=== PATIENT | female | born 1995 | race Caucasian/White ===

== ENCOUNTER 2019-11-21 19:26 | Emergency (ER) | payer BC, SELFPAY ==
[2019-11-21 19:40] VITALS: BP 147/95; PULSE 96; RESP 18; TEMP 36.6; O2SAT 100
[2019-11-21 19:44] VITALS: RESP 20
--- NOTE | 2019-11-21 20:07 | ECG_ITS ---
Measurements Intervals [place] Rate: 89 P: 29 DC: 177 QRS: 4 QRSD: 93 T: 37 QT: 367 QTc: 448 Interpretive Statements SINUS RHYTHM NORMAL ECG Electronically Signed On 11-22-2019 7:03:30 CDT by Miko Mccormack D.O.
--- NOTE | 2019-11-21 20:08 | ED.OVERDOSE ---
HPI - Overdose General Chief Complaint: Overdose Stated Complaint: Took to many antidepressants Time Seen by Provider: 11/21/19 20:04 History of Present Illness HPI Narrative: Nausea and vomiting since this morning. She reports that she was drinking last night and had too much. At some point she believes that she took of her wellbutrin tablets. She does not believe that she was trying to hurt herself, although she offeres no other explanation. She denies SI or any current depressive symptoms. Her rolloff driver confirms that he has no suspicion that she would try to harm herself. Related Data Home Medications Medication Instructions Recorded Confirmed bupropion HCl [Wellbutrin XL] 150 mg PO QAM 11/21/19 Allergies Allergy/AdvReac Type Severity Reaction Status Date / Time No Known Allergies Allergy Verified 11/21/19 19:48 Review of Systems Review of Systems: All systems reviewed & are unremarkable except as noted in HPI and below Constitutional: Constitutional: Denies fever(s) Cardiovascular: Cardiovascular: Denies chest pain Respiratory: Respiratory: Denies dyspnea Gastrointestinal: Gastrointestinal: Reports abdominal pain, Reports nausea and Reports vomiting Genitourinary: Genitourinary: Denies hematuria and Denies dysuria Psychiatric: Psychiatric: Denies homicidal ideation and Denies suicidal ideation [facility] Social History Social History (Updated 11/22/19 @ 04:58 by Ernst Wagner MD) Alcohol intake: current Gender identity (if verbalized by the patient): Female Exam Const: General: healthy appearing, no acute distress and alert Orientation/consciousness: patient oriented x3 HENMT: Head: normal to inspection Neck: Neck: normal visual inspection and no lymphadenopathy Chest: Chest palpation & inspection: no tenderness Resp: Effort & Inspection: normal respiratory effort Auscultation: clear to auscultation bilaterally, no rales, no rhonchi and no wheezes Cardio: Jugular venous distension: no JVD Rate: regular rate Rhythm: regular rhythm Heart sounds: no murmurs GI: Inspection: non-distended GI Palp: Yes Soft to palpation and No Tenderness to palpation present (GI) Skin: General skin exam: normal color Neuro: General: patient oriented x3 and moves all extremities Speech: normal speech Extrem: General: no edema Psych: Appearance: well kempt Affect: normal affect Course Vital Signs Vital signs: Vital Signs Temperature 36.6 C 11/21/19 19:40 Pulse Rate 96 11/21/19 19:40 Respiratory Rate 18 11/21/19 19:40 Blood Pressure 147/95 H 11/21/19 19:40 Pulse Oximetry 100 11/21/19 19:40 Temperature 36.6 C 11/21/19 19:40 Pulse Rate 76 11/21/19 22:36 Respiratory Rate 18 11/21/19 22:36 Blood Pressure 122/68 11/21/19 22:36 Pulse Oximetry 100 11/21/19 22:36 MDM - Overdose MDM Narrative Medical decision making narrative: Her symptoms are most likely related to the alcohol and not the wellbutrin. I am concerned about her taking this, but I genuinely believe that she does not have any current suicidal intent and I do not believe that she would benefit from being held for crisis evaluation. Medical Records Attestation: I reviewed the patient's medical records. Lab Data Attestation: I reviewed the patient's lab results. Result diagrams: 11/21/19 21:03 11/21/19 21:03 Labs: Lab Results 11/21/19 11/21/19 11/21/19 Range/Units 21:02 21:03 21:03 WBC 10.9 H (4.5-10.0) K/mm3 RBC 4.47 (4.2-5.4) M/mm3 Hgb 14.4 (12.0-15.0) g/dL Hct 42.2 (37.0-47.0) % MCV 94.4 (80-100) fl MCH 32.2 (26-34) pg MCHC 34.1 (32-36) g/dl RDW 12.0 (11.5-14.5) % Plt Count 277 (150-375) k/mm3 MPV 10.2 (7.4-10.4) fl Immature Gran % (Auto) 0.5 (0-0.5) % Neut % (Auto) 70.6 (45.5-73.1) % Lymph % (Auto) 20.1 (18.3-44.2) % Davison % (Auto) 7.1 (2.6-8.5) % Eos % (Auto) 1.3 (0-4.4) % Baso
[2019-11-21] MEDS: SODIUM CHLORIDE 0.9% IV 1,000 ML 999 ML IV CONT (21:01)
[2019-11-21 21:02] VITALS: BP 132/82; PULSE 87; RESP 20
[2019-11-21] MEDS: ONDANSETRON INJ 4 MG/2 ML VIAL IV PUSH (21:02)
[2019-11-21 21:12] LABS: Basophils Percent Auto 0.4 % (0.2-1.2); Eosinophils Absolute Auto 0.1 K/mm3 (0-0.3); Eosinophils Percent Auto 1.3 % (0-4.4); Hematocrit 42.2 % (37.0-47.0); Hemoglobin 14.4 g/dL (12.0-15.0); Immature Granulocyte Absolute 0.05 K/mm3 (0.00-0.031); Immature Granulocyte Percent A 0.5 % (0-0.5); Lymphocytes Absolute Auto 2.19 K/mm3 (0.9-3.2); Lymphocytes Percent Auto 20.1 % (18.3-44.2); Mean Corpuscular HGB Conc 34.1 g/dl (32-36); Mean Corpuscular Hemoglobin 32.2 pg (26-34); Mean Corpuscular Volume 94.4 fl (80-100); Mean Platelet Volume 10.2 fl (7.4-10.4); Monocytes Absolute Auto 0.8 K/mm3 (0.1-0.6); Monocytes Percent Auto 7.1 % (2.6-8.5); Neutrophils Absolute Auto 7.7 K/mm3 (1.3-6.7); Neutrophils Percent Auto 70.6 % (45.5-73.1); Platelet Count Result 277 k/mm3 (150-375); Red Blood Count 4.47 M/mm3 (4.2-5.4); White Blood Count 10.9 K/mm3 (4.5-10.0)
--- NOTE | 2019-11-21 21:15 | PC.NURSE ---
spoke with Dave at poison control center. she advised labs which are already in progress and ekg which has been completed. will continue to monitor
[2019-11-21 21:17] LABS: Add Urine Microscopic? YES; Amorphous Sediment Urine Moderate; Appearance Urine Cloudy (Clear); Bacteria Urine Trace /hpf; Bilirubin Urine Negative (Negative); Blood Urine Negative (Negative); Color Urine Yellow (Yellow); Glucose Urine UA Negative (Negative); Ketones Urine Negative (Negative); Leukocyte Esterase Ur Negative LEU/UL (Negative); Nitrate Urine Negative (Negative); Protein Urine 1+ mg/dL (Negative); RBC Urine 0-2 /hpf (0-2); Specific Grav Ur 1.019 (1.001-1.035); Squamous Epithelial Cell Urine Many /hpf (Few); Urobilinogen Urine Negative mg/dL (<2.0)
[2019-11-21 21:22] LABS: Alanine Aminotransferase 35 U/L (4-35); Albumin Level 4.7 g/dL (3.5-5.1); Alkaline Phosphatase 76 U/L (38-126); Aspartate Amino Transferase 28 U/L (14-36); Bilirubin,Total 0.3 mg/dL (0.2-1.3); Blood Urea Nitrogen 9 mg/dL (7-17); Calcium 9.3 mg/dL (8.4-10.2); Carbon Dioxide 24 mmol/L (22-30); Chloride 106 mmol/L (98-107); Estimated CRCL calculation 106 ml/min; Estimated Glomerular Filt Rate > 60; Glucose 95 mg/dL (65-105); Potassium 4.1 mmol/L (3.4-5.0); Sodium 139 mmol/L (137-145)
[2019-11-21 21:23] LABS: Acetaminophen < 10 ug/mL (10-30); Ethanol < 10 mg/dL (<10); Salicylate < 1.0 mg/dL (2-20)
[2019-11-21 21:27] LABS: Benzodiazepines Screen Urine Negative (Negative)
[2019-11-21 21:28] LABS: Barbiturate Screen Urine Negative (Negative)
[2019-11-21 21:30] LABS: Amphetamine Screen Urine Negative (Negative); Cannabinoid Screen Urine Positive (Negative); Cocaine Screen Urine Negative (Negative); Methadone Screen Urine Negative (Negative); Opiate Screen Urine Negative (Negative); Phencyclidine Screen Urine Negative (Negative)
--- NOTE | 2019-11-21 22:03 | PC.NURSE ---
spoke with meli at poison control to update on patients status. patient continues to be stable and poison control has closed their case
[2019-11-21 22:08] VITALS: BP 119/78; PULSE 83; RESP 18; O2SAT 100
[2019-11-21] MEDS: METOCLOPRAMIDE HCL INJ 10 MG/2 ML VIAL IV PUSH (22:08)
[2019-11-21 22:36] VITALS: BP 122/68; PULSE 76; RESP 18; O2SAT 100
== END 2019-11-21 22:53 | disposition home or self-care (01) ==
PROVIDERS: Emergency Provider Emergency Medicine
DX: R11.2 Nausea with vomiting, unspecified (principal)
CPT/HCPCS: 36415; 80053; 80307; 81001; 81025; 84443; 85025; 93005; 96361; 96374; 96375; 99284; J2405; J2765; J7030

== ENCOUNTER 2022-09-01 16:27 | Outpatient (CLI) | payer BC, SELFPAY ==
[2022-09-01] VITALS (7 sets, daily range): BP systolic 122–133; BP diastolic 50–72; PULSE 80–92; BMI 35.9
--- NOTE | 2022-09-01 17:04 | OBADM ---
This patient, James Theodore, admitted to the OB room OB Post 116 for observation. Patient/family oriented to hospital policies and general routines including ID bracelet, bed and alarms, visiting hours, pain management, procedures, bathroom and other care routines, personal items, smoking policy, room service/diet, and visiting hours. Patient/Family are encouraged to report perceived risks to care and to ask questions if they do not understand what they are told or what they should do.
[2022-09-01 17:14] LABS: Basophils Percent Auto 0.3 % (0.2-1.2); Eosinophils Absolute Auto 0.1 K/mm3 (0-0.3); Eosinophils Percent Auto 1.2 % (0-4.4); Hematocrit 37.3 % (37.0-47.0); Hemoglobin 12.7 g/dL (12.0-15.0); Immature Granulocyte Percent A 0.9 % (0-0.5); Lymphocytes Absolute Auto 2.33 K/mm3 (0.9-3.2); Lymphocytes Percent Auto 21.1 % (18.3-44.2); Mean Corpuscular Hemoglobin 31.4 pg (26-34); Mean Corpuscular Volume 92.3 fl (80-100); Monocytes Absolute Auto 0.7 K/mm3 (0.1-0.6); Monocytes Percent Auto 5.9 % (2.6-8.5); Neutrophils Absolute Auto 7.8 K/mm3 (1.3-6.7); Neutrophils Percent Auto 70.6 % (45.5-73.1); Platelet Count Result 175 k/mm3 (150-375); Red Blood Count 4.04 M/mm3 (4.2-5.4); Red Cell Distribution Width 12.3 % (11.5-14.5)
[2022-09-01 17:22] LABS: Appearance Urine Cloudy (Clear); Bacteria Urine 1+ /hpf; Bilirubin Urine Negative (Negative); Blood Urine Negative (Negative); Color Urine Yellow (Yellow); Glucose Urine UA Negative (Negative); Ketones Urine Negative (Negative); Leukocyte Esterase Ur Negative LEU/UL (NEGATIVE); Nitrate Urine Negative (Negative); Non Pathogenic Casts 0-2; Protein Urine Negative (Negative); RBC Urine 0-2 /hpf (0-2); Specific Grav Ur 1.015 (1.001-1.035); Squamous Epithelial Cell Urine Many /hpf (Few); Urobilinogen Urine 0.2 mg/dL (<2.0); pH Urine 6.5 (5.0-9.0)
[2022-09-01 17:28] LABS: Alanine Aminotransferase 23 U/L (6-35); Albumin Level 3.9 g/dL (3.5-5.1); Alkaline Phosphatase 74 U/L (38-126); Anion Gap 9 mmol/L (8-16); Aspartate Amino Transferase 24 U/L (14-36); Bilirubin,Total 0.4 mg/dL (0.2-1.3); Blood Urea Nitrogen 5 mg/dL (7-17); Calcium 8.7 mg/dL (8.4-10.2); Carbon Dioxide 22 mmol/L (22-30); Chloride 104 mmol/L (98-107); Estimated CRCL calculation 166 ml/min; Estimated Glomerular Filt Rate > 60; Glucose 83 mg/dL (65-110); Potassium 4.1 mmol/L (3.4-5.0); Sodium 135 mmol/L (137-145); Uric Acid 3.6 mg/dL (2.5-7.5)
[2022-09-01 17:29] LABS: Add Urine Microscopic? YES
--- NOTE | 2022-09-01 18:25 | PC.NURSE ---
Called lab about patients pending urine results. No results at this time, machine down.
--- NOTE | 2022-09-01 18:40 | PC.NURSE ---
Spoke with pt about pending test results. Pt has no complaints at this time and no needs.
[2022-09-01 19:01] LABS: Creatinine Urine 86.4 mg/dL; Total Protein Urine Random 9 mg/dL
--- NOTE | 2022-09-01 19:04 | PC.NURSE ---
Called lab for update. Machine was down. Updated patient on wait.
--- NOTE | 2022-09-01 19:15 | PC.NURSE ---
Updated Dr. Sanchez on no s/s, lab work, BPs. Orders to d/c patient and follow up in 2 weeks.
--- NOTE | 2022-09-01 19:30 | PC.NURSE ---
Discharge instructions reviewed with pt. Pt instructed to follow up with Dr. Sanchez in 2 weeks, pt reports her appointment is already made. PreEclampsia hand out given to patient and reviewed as well as other s/s to return to hospital. Pt had no questions.
== END 2022-09-01 19:30 ==
LOC: ANHOBOP 16:32 → ANHOBPP 16:35
PROVIDERS: PCP Family Medicine; Visit Provider Obstetrics & Gynecology
DX: O13.9 Gestational [pregnancy-induced] hypertension without significant proteinuria, unspecified trimester (principal); Z3A.00 Weeks of gestation of pregnancy not specified
CPT/HCPCS: 36415; 80053; 81001; 82570; 84156; 84550; 85025; 87086; 99199

== ENCOUNTER 2022-09-26 08:00 | Outpatient (RCR) | payer BC, SELFPAY ==
[2022-09-26 10:02] LABS: Glucose 1 Hour PP 50gm Dose 153 mg/dL
[2022-09-26 11:07] LABS: Vitamin D 25 Hydroxy 27.1 ng/mL
[2022-09-26 11:39] LABS: Hepatitis C Virus Antibody Negative (Negative)
[2022-09-29 11:30] LABS: Rapid Plasma Reagin Non-Reactive (NonReactive)
== END 2022-12-25 23:59 | disposition home or self-care (01) ==
LOC: ANHLAB 08:00
PROVIDERS: PCP Family Medicine; Visit Provider Obstetrics & Gynecology
DX: O36.0190 Maternal care for anti-D [Rh] antibodies, unspecified trimester, not applicable or unspecified (principal); Z3A.00 Weeks of gestation of pregnancy not specified
CPT/HCPCS: 36415; 82306; 82947; 84443; 86592; 86803; 86900; 86901

== ENCOUNTER 2022-10-02 07:01 | Outpatient (CLI) | payer BC, SELFPAY ==
[2022-10-02 07:32] LABS: Glucose Fasting Gestational 112 mg/dL (>/=95)
[2022-10-02 09:27] LABS: Glucose 1 Hour Gest 210 mg/dL (>/=180)
[2022-10-02 10:15] LABS: Glucose 2 Hour Gest 156 mg/dL (>/= 155)
[2022-10-02 10:58] LABS: Glucose 3 Hour Gest 119 mg/dL (>/=140)
== END 2022-10-02 07:02 | disposition home or self-care (01) ==
LOC: ANHLAB 07:03
PROVIDERS: PCP Family Medicine; Visit Provider Obstetrics & Gynecology
DX: R73.09 Other abnormal glucose (principal)
CPT/HCPCS: 36415; 82951; 82952

== ENCOUNTER 2022-11-10 08:40 | Outpatient (CLI) | payer OTHER, SELFPAY ==
[2022-11-10 09:05] LABS: Basophils Percent Auto 0.2 % (0.2-1.2); Eosinophils Absolute Auto 0.1 K/mm3 (0-0.3); Hemoglobin 11.6 g/dL (12.0-15.0); Immature Granulocyte Absolute 0.06 K/mm3 (0.00-0.031); Immature Granulocyte Percent A 0.7 % (0-0.5); Lymphocytes Absolute Auto 1.59 K/mm3 (0.9-3.2); Lymphocytes Percent Auto 19.2 % (18.3-44.2); Mean Corpuscular HGB Conc 32.2 g/dl (32-36); Mean Corpuscular Hemoglobin 29.6 pg (26-34); Mean Corpuscular Volume 91.8 fl (80-100); Mean Platelet Volume 10.8 fl (7.4-10.4); Monocytes Absolute Auto 0.5 K/mm3 (0.1-0.6); Monocytes Percent Auto 6.4 % (2.6-8.5); Neutrophils Percent Auto 72.5 % (45.5-73.1); Platelet Count Result 175 k/mm3 (150-375); Red Blood Count 3.92 M/mm3 (4.2-5.4); Red Cell Distribution Width 12.9 % (11.5-14.5); White Blood Count 8.3 K/mm3 (4.5-10.0)
[2022-11-10 09:54] LABS: HIV 1/2 Ab P24 Ag Result Negative (Negative)
[2022-11-11 12:11] LABS: Rapid Plasma Reagin Non-Reactive (NonReactive)
== END 2022-11-10 08:41 | disposition home or self-care (01) ==
LOC: ANHLAB 08:41
PROVIDERS: PCP Family Medicine; Visit Provider Obstetrics & Gynecology
DX: Z34.90 Encounter for supervision of normal pregnancy, unspecified, unspecified trimester (principal); Z3A.00 Weeks of gestation of pregnancy not specified
CPT/HCPCS: 36415; 85025; 86592; 86703; G0432

== ENCOUNTER 2022-11-21 09:19 | Observation (INO) | payer OTHER, SELFPAY ==
[2022-11-21 13:23] VITALS: BMI 41.4
--- NOTE | 2022-12-18 13:31 | PM.OBTRLD ---
OB - Triage/Final Diagnosis Visit Information Comments/Additional reasons for admission: I have assessed the risk for this patient, James Theodore, and determined that she would benefit from observation care. Final Diagnosis (1) Variable deceleration: Status: Acute
== END 2022-11-21 13:45 | disposition home or self-care (01) ==
PROVIDERS: Admitting Provider Obstetrics & Gynecology; PCP Family Medicine; Visit Provider Obstetrics & Gynecology
DX: O36.8330 Maternal care for abnormalities of the fetal heart rate or rhythm, third trimester, not applicable or unspecified (principal); Z3A.36 36 weeks gestation of pregnancy
CPT/HCPCS: 76819; G0378; G0379

== ENCOUNTER 2022-11-27 07:27 | Outpatient (RCR) | payer OTHER, SELFPAY ==
--- NOTE | 2022-11-14 10:32 | PC.NURSE ---
1030: Dr. Sanchez phoned by RN. RN reported to MD that pt was sent over from [facility] for decelerations after accelerations in the office. Reactive NST reported as well as possible variables,uterine irritability, and maternal vital signs. Orders for 2 hour extended monitor, BPP, and ASHLEY.
[2022-11-14 13:06] VITALS: BP 105/67; PULSE 96
--- NOTE | 2022-11-14 13:10 | PC.NURSE ---
1251: Dr. Sanchez phoned in for update. RN informed OB of pt's BPP of 6/8, reactive tracing, and possible decelerations after accelerations. Orders to call OB back with ASHLEY results. 1256: RN phone Dr. Sanchez with results of ASHLEY of 9.8. OB stated she reviewed tracing in her office. Orders to make sure pt has a NST scheduled with [facility] on Thursday (11/17/2021) , if not, orders to schedule patient for a NST and BPP on Thursday here. 1300: Patient stated she has a NST scheduled on Thursday with [facility] and then she is scheduled for an appointment with Dr. Sanchez after her NST at [facility] on Thursday (11/17/22).
[2022-11-24 09:54] VITALS: BP 95/44; PULSE 95
--- NOTE | ~2022-11-27 | US_ITS ---
EXAMINATION: US OB BPP wo non-stress DATE: 11/27/2022 08:31 INDICATION: Gestational diabetes, third trimester TECHNIQUE: Real-time pelvic ultrasound was performed. The interpreting radiologist was not present fo r the study. COMPARISON: 11/24/2022 FINDINGS: There is a single living fetus in vertex presentation. The placenta is anterior. heart rate is 151 beats per minute (bpm). Biophysical profile performed by the technologist: breathing (30 sec sustained breathing in 30 minutes): 2 out of 2 movement (3 gross body movements in 30 minutes): 2 out of 2 tone (one episode of tzsogvm-avjijjwzi-nxfpbre limb movement): 2 out of 2 Amniotic fluid pocket (2 cm): 2 out of 2 Total score: 8 out of 8 IMPRESSION: 1. Single living fetus in vertex presentation. 2. Biophysical profile 8 out of 8. Reviewed, dictated and finalized at location L.
--- NOTE | ~2022-11-27 | US_ITS ---
EXAMINATION: US OB BPP wo non-stress DATE: 11/14/2022 11:30 CDT INDICATION: Decelerations. Amniotic fluid index. TECHNIQUE: Real-time transabdominal obstetric ultrasound. FINDINGS: No prior studies for comparison. There is a single living fetus in vertex presentation. The placenta is anterior without placenta pre via. ASHLEY is normal measuring 9.8 cm (normal range for gestational age is 7.9-24.9 cm). cardiac activity and movement is noted with a heart rate of 149 beats per minute. Biophysical profile: breathin of 2 movement: 2 of 2 tone: 2 of 2 Amniotic flud pocket: 2 of 2 Total score: 6 of 8 IMPRESSION: 1. Single living intrauterine in vertex presentation. 2: Total biophysical profile score of 6/8. Reviewed, dictated and finalized at location B.
--- NOTE | ~2022-11-27 | US_ITS ---
EXAMINATION: US OB limited w BPP DATE: 11/24/2022 11:40 INDICATION: Gestational diabetes. Third trimester. TECHNIQUE: Real-time pelvic ultrasound was performed. COMPARISON: Ultrasound 11/21/2022 FINDINGS: There is a single living fetus in vertex presentation. The placenta is anterior. heart rate is 148 beats per minute (bpm). The amniotic fluid index is 15.9 cm, which is normal. Biophysical profile performed by the technologist: breathing (30 sec sustained breathing in 30 minutes): 2 out of 2 movement (3 gross body movements in 30 minutes): 2 out of 2 tone (one episode of wbkpzdr-ofqupgmay-goapujm limb movement): 2 out of 2 Amniotic fluid pocket (2 cm): 2 out of 2 Total score: 8 out of 8 IMPRESSION: 1. Single living fetus in vertex presentation. 2. Biophysical profile 8 out of 8. Reviewed, dictated and finalized at location A.
--- NOTE | ~2022-11-27 | US_ITS ---
EXAMINATION: US OB BPP wo non-stress DATE: 11/21/2022 10:52 CDT INDICATION: Gestational diabetes TECHNIQUE: Real-time transabdominal obstetric ultrasound. FINDINGS: Comparison to 11/14/2022 There is a single living fetus in vertex presentation. The placenta is anterior without placenta pre via. cardiac activity and movement is noted with a heart rate of 147 beats per minute. A mniotic fluid is subjectively normal. Biophysical profile: breathin of 2 movement: 2 of 2 tone: 2 of 2 Amniotic flud pocket: 2 of 2 Total score: 8 of 8 IMPRESSION: 1. Single living intrauterine in vertex presentation. 2: Total biophysical profile score of 8/8. Reviewed, dictated and finalized at location B.
[2022-11-27 07:39] VITALS: BP 118/72; PULSE 88
[2022-11-27 08:33] VITALS: BP 118/72; PULSE 88
--- NOTE | 2022-12-18 13:33 | PM.OBTRLD ---
OB - Triage/Final Diagnosis Visit Information Comments/Additional reasons for admission: I have assessed the risk for this patient, James Theodore, and determined that she would benefit from observation care. Final Diagnosis (1) Variable deceleration: Status: Acute (2) Gestational diabetes: Code(s): O24.419 - Gestational diabetes mellitus in , unspecified control Status: Acute
== END 2023-02-09 13:05 | disposition home or self-care (01) ==
LOC: ANHOBOP 07:27
PROVIDERS: PCP Family Medicine; Visit Provider Obstetrics & Gynecology
DX: O24.419 Gestational diabetes mellitus in pregnancy, unspecified control (principal); Z3A.37 37 weeks gestation of pregnancy
CPT/HCPCS: 59025; 76815; 76819; J2270

== ENCOUNTER 2022-12-07 16:31 | Inpatient (IN) | payer OTHER, SELFPAY ==
[2022-12-07] VITALS (11 sets, daily range): BP systolic 102–134; BP diastolic 43–77; PULSE 91–103; TEMP 36.6; BMI 41.4
[2022-12-07 17:59] LABS: Glucose Point of Care 89 mg/dl (65-105)
[2022-12-07 18:04] LABS: Basophils Percent Auto 0.1 % (0.2-1.2); Eosinophils Absolute Auto 0.1 K/mm3 (0-0.3); Eosinophils Percent Auto 0.6 % (0-4.4); Hematocrit 34.9 % (37.0-47.0); Hemoglobin 11.7 g/dL (12.0-15.0); Immature Granulocyte Absolute 0.02 K/mm3 (0.00-0.031); Immature Granulocyte Percent A 0.3 % (0-0.5); Lymphocytes Percent Auto 23.9 % (18.3-44.2); Mean Corpuscular HGB Conc 33.5 g/dl (32-36); Mean Corpuscular Hemoglobin 29.3 pg (26-34); Mean Corpuscular Volume 87.3 fl (80-100); Mean Platelet Volume 10.4 fl (7.4-10.4); Monocytes Absolute Auto 0.7 K/mm3 (0.1-0.6); Monocytes Percent Auto 8.9 % (2.6-8.5); Neutrophils Absolute Auto 5.3 K/mm3 (1.3-6.7); Neutrophils Percent Auto 66.2 % (45.5-73.1); Platelet Count Result 184 k/mm3 (150-375); Red Cell Distribution Width 12.9 % (11.5-14.5)
[2022-12-07] MEDS: DINOPROSTONE 10 MG VAG INSERT VAGINAL (18:05)
--- NOTE | 2022-12-07 19:06 | LDADM ---
This patient, James Theodore, was admitted to Labor/Delivery/Recovery 108 on 12/07/22 at 16:31. Plans for labor, pain management and were discussed with patient. Patient/family oriented to hospital policies and general routines including ID bracelet, bed and alarms, visiting hours, pain management, procedures, bathroom and other care routines, personal items, smoking policy, room service/diet and guest tray routines, infant security routines, and visiting hours. Patient/Family are encouraged to report perceived risks to care and to ask questions if they do not understand what they are told or what they should do. See OBIX for further documentation.
--- NOTE | 2022-12-07 19:59 | WPDANESEPP ---
Anes - Eval Pre Procedure Procedure: Labor epidural Date/Time: 12/07/22 19:59 Surgeon: Daniel Preop Diagnosis: Abdominal pain with contractions Pre Op Diagnosis: IOL Patient Data Age: 27 Gender: F Height: Weight: Last Vital Signs Temp 97.9 F 12/07/22 18:00 Pulse 95 12/07/22 19:45 BP 109/50 L 12/07/22 19:45 O2 Del Method Room Air 12/07/22 19:02 Allergies Allergy/AdvReac Type Severity Reaction Status Date / Time No Known Allergies Allergy Verified 12/01/22 15:51 Home Medications Medication Instructions Recorded Confirmed Type prenat.vits,jacqueline,ifz-ojbn-kmoyj 1 tablet PO DAILY 09/01/22 12/07/22 History blood sugar diagnostic (OneTouch #100 ea 10/06/22 11/27/22 Rx Verio test strips) blood-glucose meter (OneTouch #1 ea 10/06/22 11/27/22 Rx Verio Flex Meter) lancets 33 gauge (Lite Touch #100 ea 10/06/22 11/27/22 Rx Lancets) aspirin 81 mg tablet 81 mg PO DAILY 11/15/22 11/27/22 History cholecalciferol (vitamin D3) 50 50 mcg PO DAILY 11/15/22 11/27/22 History mcg (2,000 unit) capsule (Vitamin D3) insulin NPH isoph U-100 human 100 14 unit subcut QAM 11/15/22 11/27/22 History unit/mL (3 mL) subcutaneous pen (Humulin N NPH U-100 Insulin KwikPen) insulin NPH isoph U-100 human 100 70 unit subcut QHS 11/15/22 11/27/22 History unit/mL (3 mL) subcutaneous pen (Humulin N NPH U-100 Insulin KwikPen) insulin lispro 100 unit/mL 10 unit subcut QACDINNER 11/15/22 11/27/22 History subcutaneous pen insulin lispro 100 unit/mL 4 unit subcut QACBREAK 11/27/22 12/07/22 History subcutaneous pen Laboratory Tests 12/07/22 12/07/22 17:51 17:53 WBC 8.0 K/mm3 (4.5-10.0) RBC 4.00 L M/mm3 (4.2-5.4) Hgb 11.7 L g/dL (12.0-15.0) Hct 34.9 L % (37.0-47.0) MCV 87.3 fl (80-100) MCH 29.3 pg (26-34) MCHC 33.5 g/dl (32-36) RDW 12.9 % (11.5-14.5) Plt Count 184 k/mm3 (150-375) MPV 10.4 fl (7.4-10.4) Immature Gran % (Auto) 0.3 % (0-0.5) Neut % (Auto) 66.2 % (45.5-73.1) Lymph % (Auto) 23.9 % (18.3-44.2) [place] % (Auto) 8.9 H % (2.6-8.5) Eos % (Auto) 0.6 % (0-4.4) Baso % (Auto) 0.1 L % (0.2-1.2) Lymph # (Auto) 1.90 K/mm3 (0.9-3.2) Izard # (Auto) 0.7 H K/mm3 (0.1-0.6) Eos # (Auto) 0.1 K/mm3 (0-0.3) Baso # (Auto) 0.0 K/mm3 (0.0-0.1) Abs Immat Gran (auto) 0.02 K/mm3 (0.00-0.031) Absolute Neuts (auto) 5.3 K/mm3 (1.3-6.7) Absolute Nucleated RBC 0.0 K/mm3 (0.0-0.012) Nucleated RBC % 0.0 % (0.0-0.2) POC Capillary Glucose 89 mg/dl (65-105) RPR Pending : gestational age HCG: positive Patient hx anesthesia problems: none Family hx anesthesia problems: none Results Review: All pre-operative results and documents have been reviewed as part of the pre-operative evaluation. [facility] Past Medical History Medical History Gestational diabetes History of pineal cyst Morbid obesity PCOS (polycystic ovarian syndrome) and not yet delivered Family History Family History Father Alcoholism Depression Grandparent Diabetes mellitus Uterine cancer Social History Social History Smoking status: Never smoker Alcohol intake: current Substance use: never Lack of Transportation: No Lack of Food: Never True Current Housing: I Have Housing Concerned About Future Housing: No Difficulty Paying Gas/Electric Bills: No Difficulty Paying for Meds: No Currently Unemployed: No Education: Bachelor's Degree Difficulty w/ Childcare or Family Care: No Gender identity (if verbalized by the patient): Female Spiritual care concerns: No Exam Day of Procedure 12/07
[2022-12-07 21:18] LABS: Glucose Point of Care 132 mg/dl (65-105)
[2022-12-08] VITALS (280 sets, daily range): BP systolic 58–138; BP diastolic 27–100; PULSE 60–167; RESP 18–20; TEMP 36.3–37.2; O2SAT 94–100
[2022-12-08 01:07] LABS: Glucose Point of Care 147 mg/dl (65-105)
[2022-12-08] MEDS: LACTATED RINGERS 1,000 ML 125 ML IV CONT ×2 (01:49→07:20)
[2022-12-08 05:18] LABS: Glucose Point of Care 139 mg/dl (65-105)
[2022-12-08] MEDS: OXYTOCIN 30 UNITS/NS 500 ML 30 UNITS/500 ML BAG IV CONT (07:30)
[2022-12-08 07:34] LABS: Glucose Point of Care 109 mg/dl (65-105)
[2022-12-08 09:37] LABS: Glucose Point of Care 93 mg/dl (65-105)
[2022-12-08 11:35] LABS: Glucose Point of Care 88 mg/dl (65-105)
[2022-12-08] MEDS: DEXTROSE 5%/LACTATED RINGERS 1,000 ML 125 ML IV CONT ×2 (13:05→21:29)
[2022-12-08 14:07] LABS: Glucose Point of Care 100 mg/dl (65-105)
[2022-12-08] MEDS: SODIUM CHLORIDE 0.9% IV 300 ML 600 ML I-UTERINE (14:35)
--- NOTE | 2022-12-08 15:36 | PM.IMHP ---
H&P: HPI History of Present Illness Date/Time: 12/08/22 15:36 Chief Complaint: Medical induction of labor Narrative: She is a 27-year-old at 39 weeks by an EDC of 12/14/2022. course significant for insulin-requiring gestational diabetes. She has been recommended for induction at 39 weeks. She has had serial ultrasounds EFW approximately 88th percentile. Normal surveillance testing. She has been counseled regarding risk of gestational diabetes and delivery. As reviewed. GBS negative. Review of Systems Review of Systems: All systems reviewed & are unremarkable except as noted in HPI and below Constitutional: Constitutional: Reports no additional constitutional complaints and Denies headache(s) Eyes: Eyes: Denies spots in vision ENT: Reports system reviewed and no additional complaints, except as documented and Denies headache(s) Cardiovascular: Cardiovascular: Denies chest pain and Denies dyspnea Respiratory: Respiratory: Denies dyspnea Gastrointestinal: Gastrointestinal: Reports no additional gastrointestinal complaints Genitourinary: Genitourinary: Reports amenorrhea Musculoskeletal: Musculoskeletal: Reports no additional musculoskeletal complaints Integumentary/Breasts: Skin/Breast: Denies breast mass and Denies rash Neurologic: Denies headache(s) Psychiatric: Psychiatric: Reports no additional psychiatric complaints PMFSH Past Medical History Medical History Gestational diabetes History of pineal cyst Morbid obesity PCOS (polycystic ovarian syndrome) and not yet delivered Family History Family History Father Alcoholism Depression Grandparent Diabetes mellitus Uterine cancer Social History Social History Smoking status: Never smoker Alcohol intake: current Substance use: never Lack of Transportation: No Lack of Food: Never True Current Housing: I Have Housing Concerned About Future Housing: No Difficulty Paying Gas/Electric Bills: No Difficulty Paying for Meds: No Currently Unemployed: No Education: Bachelor's Degree Difficulty w/ Childcare or Family Care: No Gender identity (if verbalized by the patient): Female Spiritual care concerns: No Meds Home Medications and Allergies Home Medications Medication Instructions Recorded Confirmed Type prenat.vits,jacqueline,qtc-rxfo-cjzch 1 tablet PO DAILY 09/01/22 12/07/22 History blood sugar diagnostic (OneTouch #100 ea 10/06/22 11/27/22 Rx Verio test strips) blood-glucose meter (OneTouch #1 ea 10/06/22 11/27/22 Rx Verio Flex Meter) lancets 33 gauge (Lite Touch #100 ea 10/06/22 11/27/22 Rx Lancets) aspirin 81 mg tablet 81 mg PO DAILY 11/15/22 11/27/22 History cholecalciferol (vitamin D3) 50 50 mcg PO DAILY 11/15/22 11/27/22 History mcg (2,000 unit) capsule (Vitamin D3) insulin NPH isoph U-100 human 100 14 unit subcut QAM 11/15/22 11/27/22 History unit/mL (3 mL) subcutaneous pen (Humulin N NPH U-100 Insulin KwikPen) insulin NPH isoph U-100 human 100 70 unit subcut QHS 11/15/22 11/27/22 History unit/mL (3 mL) subcutaneous pen (Humulin N NPH U-100 Insulin KwikPen) insulin lispro 100 unit/mL 10 unit subcut QACDINNER 11/15/22 11/27/22 History subcutaneous pen insulin lispro 100 unit/mL 4 unit subcut QACBREAK 11/27/22 12/07/22 History subcutaneous pen Allergies Allergy/AdvReac Type Severity Reaction Status Date / Time No Known Allergies Allergy Verified 12/01/22 15:51 Vital Signs Vital Signs - 24 hr 12/07/22 17:31 12/07/22 18:15 12/07/22 18:30 Temperature Pulse Rate 103 H 96 93 Blood Pressure 102/56 L 102/58 L 120/75 Pulse Oximetry Oxygen Delivery 12/07/22 18:45 12/07/22 18:00 12/07/22 19:00 Temperature 97.9 F Pulse Rate 96 91 Blood Pressur
--- NOTE | 2022-12-08 15:45 | PM.OBPNVD ---
OB - PN: Subj Subjective Date/time seen: 12/08/22 15:45 Interval history: FHT 135 category 1 cervix 250- 3 AROM large amount of clear fluid. IUPC placed to monitor contraction pattern better. OB - PN: Obj Data Labs 12/07/22 17:53 Labs: Laboratory Results - last 24 hr 12/07/22 12/07/22 12/07/22 17:51 17:53 21:16 WBC 8.0 RBC 4.00 L Hgb 11.7 L Hct 34.9 L MCV 87.3 MCH 29.3 MCHC 33.5 RDW 12.9 Plt Count 184 MPV 10.4 Immature Gran % (Auto) 0.3 Neut % (Auto) 66.2 Lymph % (Auto) 23.9 [place] % (Auto) 8.9 H Eos % (Auto) 0.6 Baso % (Auto) 0.1 L Lymph # (Auto) 1.90 [place] # (Auto) 0.7 H Eos # (Auto) 0.1 Baso # (Auto) 0.0 Abs Immat Gran (auto) 0.02 Absolute Neuts (auto) 5.3 Absolute Nucleated RBC 0.0 Nucleated RBC % 0.0 POC Capillary Glucose 89 132 H Blood Type A Positive Antibody Screen Negative 12/08/22 12/08/22 12/08/22 01:03 05:13 07:29 WBC RBC Hgb Hct MCV MCH MCHC RDW Plt Count MPV Immature Gran % (Auto) Neut % (Auto) Lymph % (Auto) [place] % (Auto) Eos % (Auto) Baso % (Auto) Lymph # (Auto) [place] # (Auto) Eos # (Auto) Baso # (Auto) Abs Immat Gran (auto) Absolute Neuts (auto) Absolute Nucleated RBC Nucleated RBC % POC Capillary Glucose 147 H 139 H 109 H Blood Type Antibody Screen 12/08/22 12/08/22 12/08/22 09:33 11:32 14:05 WBC RBC Hgb Hct MCV MCH MCHC RDW Plt Count MPV Immature Gran % (Auto) Neut % (Auto) Lymph % (Auto) [place] % (Auto) Eos % (Auto) Baso % (Auto) Lymph # (Auto) [place] # (Auto) Eos # (Auto) Baso # (Auto) Abs Immat Gran (auto) Absolute Neuts (auto) Absolute Nucleated RBC Nucleated RBC % POC Capillary Glucose 93 88 100 Blood Type Antibody Screen OB - PN A/P Time Spent With Patient Time: Total time spent is greater than 50% in coordination of care (as documented) at patient's floor/unit and/or counseling patient:
--- NOTE | 2022-12-08 16:26 | P.PNOB_ITS ---
OB - PN: Subj Subjective Date/time seen: 12/08/22 16:26 Interval history: FHT 135 category 1, cervix 4/50/-3, mild caput, intermittent adequate contractions, variables improved with amnioinfusion bolus, OB - PN: Obj Data Labs 12/07/22 17:53 Labs: Laboratory Results - last 24 hr 12/07/22 12/07/22 12/07/22 17:51 17:53 21:16 WBC 8.0 RBC 4.00 L Hgb 11.7 L Hct 34.9 L MCV 87.3 MCH 29.3 MCHC 33.5 RDW 12.9 Plt Count 184 MPV 10.4 Immature Gran % (Auto) 0.3 Neut % (Auto) 66.2 Lymph % (Auto) 23.9 [place] % (Auto) 8.9 H Eos % (Auto) 0.6 Baso % (Auto) 0.1 L Lymph # (Auto) 1.90 [place] # (Auto) 0.7 H Eos # (Auto) 0.1 Baso # (Auto) 0.0 Abs Immat Gran (auto) 0.02 Absolute Neuts (auto) 5.3 Absolute Nucleated RBC 0.0 Nucleated RBC % 0.0 POC Capillary Glucose 89 132 H Blood Type A Positive Antibody Screen Negative 12/08/22 12/08/22 12/08/22 01:03 05:13 07:29 WBC RBC Hgb Hct MCV MCH MCHC RDW Plt Count MPV Immature Gran % (Auto) Neut % (Auto) Lymph % (Auto) [place] % (Auto) Eos % (Auto) Baso % (Auto) Lymph # (Auto) [place] # (Auto) Eos # (Auto) Baso # (Auto) Abs Immat Gran (auto) Absolute Neuts (auto) Absolute Nucleated RBC Nucleated RBC % POC Capillary Glucose 147 H 139 H 109 H Blood Type Antibody Screen 12/08/22 12/08/22 12/08/22 09:33 11:32 14:05 WBC RBC Hgb Hct MCV MCH MCHC RDW Plt Count MPV Immature Gran % (Auto) Neut % (Auto) Lymph % (Auto) [place] % (Auto) Eos % (Auto) Baso % (Auto) Lymph # (Auto) [place] # (Auto) Eos # (Auto) Baso # (Auto) Abs Immat Gran (auto) Absolute Neuts (auto) Absolute Nucleated RBC Nucleated RBC % POC Capillary Glucose 93 88 100 Blood Type Antibody Screen OB - PN A/P Time Spent With Patient Time: Total time spent is greater than 50% in coordination of care (as documented) at patient's floor/unit and/or counseling patient:
[2022-12-08 16:32] LABS: Glucose Point of Care 86 mg/dl (65-105)
[2022-12-08 16:55] LABS: Rapid Plasma Reagin Non-Reactive (NonReactive)
[2022-12-08] MEDS: CALCIUM CARBONATE (TUMS) 500 MG (200 MG ELEMENTAL) PO (17:25)
[2022-12-08 18:14] LABS: Glucose Point of Care 103 mg/dl (65-105)
[2022-12-08 20:02] LABS: Glucose Point of Care 78 mg/dl (65-105)
--- NOTE | 2022-12-08 21:52 | P.PNOB_ITS ---
OB - PN: Subj Subjective Date/time seen: 12/08/22 21:52 Interval history: FHT 135 category 1, cervix 4/70/-3. Cervix swelling, caput. She has been in latent labor since 299. Pitocin has had to be adjust and turned off. It was restarted. She continued to contract. Cervix at 2200 unchanged and now with cervical swelling, caput. She has been recommended for primary section for failure to progress. She has been informed of risk benefit of sect ion and risk of continuing labor. Questions answered. Consent signed. OB - PN: Obj Data Labs 12/07/22 17:53 Labs: Laboratory Results - last 24 hr 12/07/22 12/08/22 12/08/22 17:53 01:03 05:13 POC Capillary Glucose 147 H 139 H RPR Non-reactive 12/08/22 12/08/22 12/08/22 07:29 09:33 11:32 POC Capillary Glucose 109 H 93 88 RPR 12/08/22 12/08/22 12/08/22 14:05 16:11 18:12 POC Capillary Glucose 100 86 103 RPR 12/08/22 19:58 POC Capillary Glucose 78 RPR OB - PN A/P Time Spent With Patient Time: Total time spent is greater than 50% in coordination of care (as documented) at patient's floor/unit and/or counseling patient:
--- NOTE | 2022-12-08 22:01 | W.PM.PROC2 ---
Procedure Note - Detailed Date of Procedure 12/08/22 Pre-op Diagnosis Failure to progress Post-op Diagnosis Same Procedure Performed Primary low transverse section Surgeon Oc Sanchez MD Pathology Manager Jon. Anesthesia Epidural Indications Patient admitted for [facility] at 39 weeks with insulin requiring gestational diabetes. Last ultrasound showed weight 88%. She was admitted on 12/08. Cervidil started. She started ellis at 0300. Blood sugars have been WNL during labor. No insulin required. She had AROM at 0830. She had epidural placed prior to AROM. She has had pitocin adjusted and position changed. She did get amnioinfusion bolus for decelerations which did resolve the variable decelerations. Cervix has been unchanged since 2pm. Pitocin was discontinued and restarted and she continued to contract and no change. She was recommended for delivery for failure to progress, failed induction which she agreed. Findings Male , OT, 8lb 90z, 9,9 apgars, normal uterus and fallopian tubes, uterine hypotonia Description of Procedure After informed consent, risks and benefits of the procedure was discussed with the patient. The patient was taken to the operating room where she was placed in the dorsal lithotomy position with leftward tilt. After the prior placed epidural anesthesia was found to be adequate, she was then prepped and draped in the usual sterile fashion. A Pfannenstiel skin incision was made with a scalpel and carried through to the underlying layer of fascia. The fascia was then nicked in the midline, extending bilaterally. The fascia was dissected off the rectus muscles bluntly and sharply, superiorly and inferiorly. The rectus muscles were in the midline, and peritoneum was identified and entered bluntly. The pelvic organs were visualized. The bladder blade was then inserted. The vesicouterine peritoneum was identified and entered sharply with Metzenbaum scissors and extended bilaterally and then the bladder flap was created digitally. The low transverse uterine incision was then made with the scalpel and extended with bilateral index fingers in a crescent-shaped fashion. The head was delivered and the rest of the was delivered. The nose and mouth suctioned. The cord was clamped twice and cut. The was then handed off to the awaiting nursery staff. The placenta was then delivered manually. The uterine cavity was sponge curretted. The uterus was then exteriorized. The uterus was hypotonic. She had 40 units of Pitocin in the bag. 0.2mg IM Methergine was injected in uterine muscle. Eventually the uterine tone started to improve. The uterine incision was then closed with 0 vicryl in a running locked fashion.. Hemostasis noted. A second layer of 0 vicryl was used in an imbricating fashion for hemostasis. The tone of uterus improved but continued hypotonic and instructed 1000ug of Cytotec rectally. Uterine tone improved. The posterior cul de sac was irrigated. The uterus was then returned to the abdomen. Bilateral gutters were cleared off all clots and debris. The uterine incision was noted to be hemostatic. Interceed placed on uterine incision and vertically on front of uterus. The muscle bellies were inspected and noted to be hemostatic. The subfascial layer was noted to be hemostatic, and the fascia was closed with 0 Vicryl in a running fashion. The subcutaneous layer was then approximated with 3-0 Vicryl in a subcutaneous fashion. The skin was closed with dissolveable adelso. Skin dermabond applied at incision. All instruments, needle, and lap counts were correct x3. The patient was taken to the recovery room in stable condition. Estimated Blood Loss 1,050 Drains No Packing No Pathology Yes (placenta and cord) Complications Other complications (Hypotonic uterus) Condition Stable Disposition Floor [facility] Billing Surgery - Charge Forward: Surgery Billing
[2022-12-08 22:16] LABS: Glucose Point of Care 98 mg/dl (65-105)
[2022-12-08] MEDS: ceFAZolin 1 GM/NS 50 ML 1 GM/50 ML BAG IVPB (22:45)
[2022-12-08] MEDS: MORPHINE SULFATE INJ (*CRX) 10 MG/ML AMP 2 MG IV PUSH (23:49)
[2022-12-09] VITALS (38 sets, daily range): BP systolic 67–126; BP diastolic 33–76; PULSE 63–133; RESP 16–20; TEMP 36.1–36.9; O2SAT 75–100
[2022-12-09] MEDS: TRANEXAMIC ACID 1,000 MG/10 ML AMPUL 1000 MG IV PUSH (00:11)
[2022-12-09] MEDS: miSOPROStol 200 MCG TABLET 1000 MCG (01:23)
[2022-12-09] MEDS: KETOROLAC 30 MG/ML VIAL (*BKC) IV PUSH (05:20)
[2022-12-09] MEDS: HYDROcodone/acetaminophen (*CRX) 5-325 MG TABLET 1 TAB PO ×2 (05:20→16:40)
[2022-12-09 05:46] LABS: Basophils Percent Auto 0.1 % (0.2-1.2); Eosinophils Percent Auto 0.1 % (0-4.4); Hematocrit 28.7 % (37.0-47.0); Hemoglobin 9.2 g/dL (12.0-15.0); Immature Granulocyte Absolute 0.09 K/mm3 (0.00-0.031); Immature Granulocyte Percent A 0.7 % (0-0.5); Lymphocytes Absolute Auto 1.55 K/mm3 (0.9-3.2); Lymphocytes Percent Auto 11.5 % (18.3-44.2); Mean Corpuscular HGB Conc 32.1 g/dl (32-36); Mean Corpuscular Hemoglobin 29.1 pg (26-34); Mean Corpuscular Volume 90.8 fl (80-100); Mean Platelet Volume 11.2 fl (7.4-10.4); Neutrophils Absolute Auto 10.9 K/mm3 (1.3-6.7); Neutrophils Percent Auto 80.6 % (45.5-73.1); Platelet Count Result 171 k/mm3 (150-375); Red Blood Count 3.16 M/mm3 (4.2-5.4); White Blood Count 13.5 K/mm3 (4.5-10.0)
[2022-12-09] MEDS: DEXTROSE 5%/0.45% SOD CHL 1,000 ML 125 ML IV CONT (06:00)
[2022-12-09] MEDS: MULTIVIT/MIN/PREN/FOL AC/IRON TABLET 1 TAB PO (09:07)
[2022-12-09] MEDS: POLYSACCHARIDE IRON COMPLEX 150 MG CAPSULE PO ×2 (09:07→16:40)
[2022-12-09] MEDS: DOCUSATE SODIUM 100 MG CAPSULE PO ×2 (09:07→16:40)
[2022-12-09] MEDS: ceFAZolin 1 GM/NS 50 ML 1 GM/50 ML BAG IVPB (09:10)
[2022-12-09] MEDS: HYDROcodone/acetaminophen (*CRX) 10-325 MG TABLET 1 TAB PO ×4 (10:00→23:44)
[2022-12-09] MEDS: SIMETHICONE 80 MG TAB.CHEW PO ×3 (10:00→19:47)
--- NOTE | 2022-12-09 12:57 | PC.NURSE ---
[id number] Introductions were made, then consulted with patient to assess needs related to . Mother led the conversation with her?plans to feed?her infant and the?experience so far. Mother states infant had just finished a 20 minutes breastfeed on the left breast using cradle. Resources provided for inpatient with name written on the white board. Mother voiced understanding of information and mother request assistance latching to the right side to offer the 2nd breast practicing the football positioning. Mother works well with her with encouragement and education. Encouraged understanding of the benefits of skin to skin (demonstrating unwrapping infant and placing upright on her chest), stimulating with massage touch, changing positions to encourage wakefulness, how to watch for early feeding cues, responsive feeding, feeding on demand (aiming for 8-12 times in 24 hours, about every 2-3 hours), milk production, building/maintaining a milk supply, duration of feeding, signs of adequate intake/output and how to record on the feeding sheet. Reviewed positioning and ear, shoulder, hip alignment, supporting the breast to facilitate a deep latch, asymmetrical latch (off-center), leading with the chin with a big, open, wide gape and body close to mother. Infant latched optimally to the right breast in football position. Education given to mother of how to visualize appropriate rocking jaw motion with pauses, and how to encouraged active . was able to maintain latch without discomfort to mother. Nipple care reviewed with optimal latch and good positioning. Mother voiced understanding of skin to skin, on demand (about every 2-3 hours), to call if infant does not latch, or if there is discomfort with . Resources provided for inpatient assistance with name written on the communication board. Mother voiced understanding of information, demonstrated learning and will call if there is a request for assistance. Reported to the primary RN.
[2022-12-09] MEDS: IBUPROFEN 600 MG TABLET PO ×2 (13:18→19:46)
--- NOTE | 2022-12-09 13:59 | WPDANLDPN2 ---
Anes-Prog Note L&D Date/Time: 12/09/22 13:59 Neuro status: Neuro function grossly intact. Vital Signs: Last Vital Signs Temp 36.1 C L 12/09/22 12:00 Pulse 99 12/09/22 12:00 Resp 20 12/09/22 12:00 BP 113/62 12/09/22 12:00 Pulse Ox 97 12/09/22 12:00 O2 Del Method Room Air 12/09/22 02:00 Pain score (VAS): 0 I/O: Intake & Output 12/08/22 12/09/22 12/09/22 23:59 07:59 15:59 Intake Total 1000 1000 500 Output Total 550 950 Balance 1000 450 -450 Patient feedback: Patient satisfied with anesthetic care.
--- NOTE | 2022-12-09 13:59 | WPDANLDNPN2 ---
Anes-Prog Note L&D-Neuraxial Date/Time: 12/09/22 13:59 Patient feedback: Patient satisfied with post-operative pain management.
[2022-12-09] MEDS: CEPHALEXIN 500 MG CAPSULE PO ×2 (16:40→23:44)
--- NOTE | 2022-12-09 22:01 | PM.OBPNVD ---
OB - PN: Subj Subjective Date/time seen: 12/09/22 0800 Interval history: She has adequate pain control. She has not ambulated. She has tolerated liquids. Baby is doing well. Lochia light. OB - PN: Obj Data Labs 12/09/22 05:11 Labs: Laboratory Results - last 24 hr 12/08/22 12/09/22 21:59 05:11 WBC 13.5 H RBC 3.16 L Hgb 9.2 L Hct 28.7 L MCV 90.8 MCH 29.1 MCHC 32.1 RDW 13.0 Plt Count 171 MPV 11.2 H Immature Gran % (Auto) 0.7 H Neut % (Auto) 80.6 H Lymph % (Auto) 11.5 L [place] % (Auto) 7.0 Eos % (Auto) 0.1 Baso % (Auto) 0.1 L Lymph # (Auto) 1.55 [place] # (Auto) 1.0 H Eos # (Auto) 0.0 Baso # (Auto) 0.0 Abs Immat Gran (auto) 0.09 H Absolute Neuts (auto) 10.9 H Absolute Nucleated RBC 0.0 Nucleated RBC % 0.0 POC Capillary Glucose 98 OB - PN A/P Assessment and Plan (1) Delivery by section: Status: Acute Assessment and Plan: POD 1. Doing well. Routine post op care. Time Spent With Patient Time: Total time spent is greater than 50% in coordination of care (as documented) at patient's floor/unit and/or counseling patient: Exam Const: General: comfortable and no acute distress Resp: Effort & Inspection: normal respiratory effort Auscultation: clear to auscultation bilaterally Cardio: Rate: regular rate GI: Other: fundus firm below umbilicus incision intact Extrem: General: normal to inspection (nontender, 1+ LE edema) Psych: Mental Status: mental status grossly normal Affect: normal affect
[2022-12-10] MEDS: HYDROcodone/acetaminophen (*CRX) 10-325 MG TABLET 1 TAB PO (19:00)
[2022-12-10 20:06] VITALS: BP 135/71; PULSE 98; RESP 17; TEMP 36.6; O2SAT 100
[2022-12-10] MEDS: IBUPROFEN 600 MG TABLET PO (21:43)
[2022-12-11] MEDS: HYDROcodone/acetaminophen (*CRX) 10-325 MG TABLET 1 TAB PO ×3 (00:20→08:55)
[2022-12-11 00:27] VITALS: BP 107/63; PULSE 94; RESP 17; TEMP 36.7; O2SAT 96
[2022-12-11] MEDS: CEPHALEXIN 500 MG CAPSULE PO ×2 (00:28→13:30)
[2022-12-11] MEDS: IBUPROFEN 600 MG TABLET PO ×2 (04:15→13:31)
--- NOTE | 2022-12-11 07:11 | PM.OBDSVD ---
DS: Admitting Diagnosis Discharge Date 12/11/22 Admitting Diagnosis intrauterine at term insulin dependent gestational diabetes OB - DS: Summary OB Procedures : None OB Procedures Intrapartum: OB Procedures: : None Peripartum Data Infant Delivery Method: Section Procedures: Procedures Operation Date: 12/08/22 21:50 Actual Procedure Side Surgeon p Section Bilateral Oc Sanchze MD complications: none Status at Discharge Functional status at discharge: independent ambulation Overall status at discharge: patient is progressing back to baseline Time Spent with Patient Time attestation: Total time spent providing and/or coordinating discharge services: Time spent: Less than 30 minutes Exam Const: General: comfortable and no acute distress Resp: Effort & Inspection: normal respiratory effort Auscultation: clear to auscultation bilaterally Cardio: Rate: regular rate GI: Inspection: non-distended GI Palp: Yes Soft to palpation, No Firmness to palpation present (GI), Yes Tenderness to palpation present (GI) (mild tenderness over incision ) and No Guarding due to palpation present (GI) Auscultation: normal bowel sounds Psych: Appearance: grossly normal Mental Status: mental status grossly normal DS: Data Data Completed and Pending Pending studies at discharge: Pending at discharge 12/09/22 00:00 Surgical [PTH] Routine 12/11/22 23:30 Surgical [PTH] Routine Discharge Plan Discharge Attending physician on discharge: Oc Sanchez Discharging Clinician: David Reddy Patient Disposition: Home, Self-Care Activity: as tolerated and pelvic rest Diet: regular Patient Instructions: Antibiotic Form Stand Alone Forms: General Discharge Information Follow-up/Referrals: Oc Sanchez MD [Physician] - Discharge Medications: New acetaminophen 500 mg tablet 500 mg PO Q6H PRN (Reason: pain) Qty: 30 0RF Continued prenat.vits,jacqueline,[id number]-zoyuc Tablet 1 tablet PO DAILY cholecalciferol (vitamin D3) [Vitamin D3] 50 mcg (2,000 unit) Capsule 50 mcg PO DAILY aspirin 81 mg Tablet 81 mg PO DAILY (DME) blood-glucose meter [OneTouch Verio Flex meter] Misc See Rx Instructions .MEDSUPPLY Qty: 1 0RF Rx Instructions: As directed (DME) OneTouch Verio test strips Strip See Rx Instructions .MEDSUPPLY Qty: 100 3RF Rx Instructions: QID: fasting and 1 hr after breakfast, lunch, and dinner. (DME) lancets [Lite Touch Lancets] 33 gauge misc See Rx Instructions .MEDSUPPLY Qty: 100 3RF Rx Instructions: QID: fasting and 1 hr after breakfast, lunch, and dinner. Discontinued insulin lispro 100 unit/mL Insulin Pen 10 unit SUBCUT QACDINNER Humulin N NPH Insulin KwikPen 100 unit/mL (3 mL) Insulin Pen 14 unit SUBCUT QAM Humulin N NPH Insulin KwikPen 100 unit/mL (3 mL) Insulin Pen 70 unit SUBCUT QHS insulin lispro 100 unit/mL Insulin Pen 4 unit SUBCUT QACBREAK Date of admission: 12/07/22 16:31 Primary Care Provider: Oralia,Nivia Parada Admitting Provider: Oc Sanchez Attending physician on admission: Oc Sanchez Condition: Stable
[2022-12-11 08:15] VITALS: BP 127/87; PULSE 103; RESP 16; TEMP 37.4; O2SAT 99
[2022-12-11] MEDS: POLYSACCHARIDE IRON COMPLEX 150 MG CAPSULE PO (08:54)
[2022-12-11] MEDS: DOCUSATE SODIUM 100 MG CAPSULE PO (08:55)
[2022-12-11] MEDS: MULTIVIT/MIN/PREN/FOL AC/IRON TABLET 1 TAB PO (08:55)
[2022-12-11] MEDS: HYDROcodone/acetaminophen (*CRX) 5-325 MG TABLET 1 TAB PO (13:30)
[2022-12-12 11:52] VITALS: BP 128/79; PULSE 91; RESP 18; TEMP 37.7; O2SAT 98
== END 2022-12-11 15:04 | disposition home or self-care (01) | DRG 788 ==
LOC: ANHLDR 16:43 → ANHOB2 12-11 07:13 → ANHLDR 12-12 13:14 → ANHOB2 12-12 13:14
PROVIDERS: Admitting Provider Obstetrics & Gynecology; PCP Family Medicine; Visit Provider Student in an Organized Health Care Education/Training Program
PROC: 10D00Z1 Extraction of Products of Conception, Low, Open Approach (ICD-10-PCS; CPT 59514; principal; 2022-12-08 21:50)
DX: O24.429 Gestational diabetes mellitus in childbirth, unspecified control (principal); Z37.0 Single live birth; Z3A.39 39 weeks gestation of pregnancy; O36.8330 Maternal care for abnormalities of the fetal heart rate or rhythm, third trimester, not applicable or unspecified; O62.0 Primary inadequate contractions; O61.0 Failed medical induction of labor
CPT/HCPCS: 36415; 82948; 85025; 86592; 86850; 86900; 86901; 88307; A9270; J0690; J1885; J2210; J2270; J2274; J2370; J2405; J2590; J2795; J7030; J7120; J7121

== ENCOUNTER 2023-01-10 19:06 | Emergency (ER) | payer OTHER, SELFPAY ==
[2023-01-10 19:17] VITALS: BP 118/61; PULSE 76; RESP 18; TEMP 36.2; O2SAT 99
--- NOTE | 2023-01-10 22:15 | ED.SKABFB ---
HPI - Skin/Abscess/Foreign Bdy General Chief complaint: Recheck/Abnormal Lab/Rx Stated complaint: c section incision infection? Time Seen by Provider: 01/10/23 22:01 Source: patient Mode of arrival: ambulatory Limitations: no limitations History of Present Illness HPI narrative: This is a 27 year old female that presents to the ER for redness at c section incision. Noted today. Reports pain and redness to the right side of her incision. C section was about 1 month ago. Denies fevers. Related Data Home Medications Medication Instructions Recorded Confirmed prenat.vits,jacqueline,[id number]-dpihb 1 tablet PO DAILY 09/01/22 01/05/23 aspirin 81 mg tablet 81 mg PO DAILY 11/15/22 01/05/23 cholecalciferol (vitamin D3) 50 50 mcg PO DAILY 11/15/22 01/05/23 mcg (2,000 unit) capsule (Vitamin D3) Allergies Allergy/AdvReac Type Severity Reaction Status Date / Time No Known Allergies Allergy Verified 12/16/22 12:58 Review of Systems Review of Systems: CONSTITUTIONAL: Denies fever GASTROINTESTINAL: Denies abdominal pain, nausea, vomiting GENITOURINARY: Denies dysuria SKIN: Reports redness All systems reviewed & are unremarkable except as noted in HPI and below PMFSH Past Medical History Medical History Gestational diabetes History of pineal cyst Morbid obesity PCOS (polycystic ovarian syndrome) and not yet delivered Surgical History Surgical History History of section Family History Family History Father Alcoholism Depression Grandparent Diabetes mellitus Uterine cancer Social History Social History Smoking status: Never smoker Alcohol intake: current Substance use: never Lack of Transportation: No Lack of Food: Never True Current Housing: I Have Housing Concerned About Future Housing: No Difficulty Paying Gas/Electric Bills: No Difficulty Paying for Meds: No Currently Unemployed: No Education: Bachelor's Degree Difficulty w/ Childcare or Family Care: No Gender identity (if verbalized by the patient): Female Spiritual care concerns: No Exam Narrative: GENERAL: Well-appearing, well-nourished, and in no acute distress. HEAD: Normocephalic, atraumatic. EYES: EOMI. CHEST: Clear to auscultation. No respiratory distress. No wheezes rales or rhonchi HEART: Regular rate and rhythm. No murmur heard. Normal peripheral pulses. ABDOMEN: Soft, nontender, nondistended, normal active bowel sounds. Incision with mild redness on the right side. No fluctuance or abnormal drainage is noted EXTREMITIES: Normal range of motion. No edema. SKIN: Warm, dry, no rash. NEURO: No focal deficits. Alert and oriented x3. PSYCH: Normal mood and affect Course Vital Signs Vital signs: Vital Signs Temperature 97.1 F L 01/10/23 19:17 Pulse Rate 76 01/10/23 19:17 Respiratory Rate 18 01/10/23 19:17 Blood Pressure 118/61 01/10/23 19:17 Pulse Oximetry 99 01/10/23 19:17 Oxygen Delivery Room Air 01/10/23 19:17 Temperature 97.1 F L 01/10/23 19:17 Pulse Rate 76 01/10/23 19:17 Respiratory Rate 18 01/10/23 19:17 Blood Pressure 118/61 01/10/23 19:17 Pulse Oximetry 99 01/10/23 19:17 Oxygen Delivery Room Air 01/10/23 19:17 MDM - Skin/Abscess/Foreign Bdy MDM Narrative Medical decision making narrative: Patient presents to the ER for redness and pain to her incision site noted today. She is afebrile and nontoxic-appearing. She denies any fevers, abdominal pain, or vomiting. There is no fluctuance or abnormal drainage noted. Will be treated with oral antibiotic for mild cellulitis. She was given return precautions. She is to follow-up with her WOOD CARVER at her next scheduled appointment. Reports she sees her in abo
[2023-01-10 22:40] VITALS: BP 122/68; PULSE 74; RESP 15; O2SAT 99
== END 2023-01-10 22:41 | disposition home or self-care (01) ==
PROVIDERS: Emergency Provider Physician Assistant; PCP Family Medicine
DX: L03.311 Cellulitis of abdominal wall (principal)
CPT/HCPCS: 99283

== ENCOUNTER 2023-12-10 09:29 | Outpatient (CLI) | payer OTHER, SELFPAY ==
[2023-12-10 10:27] LABS: Cholesterol 153 mg/dL (0-200); HDL Direct 40 mg/dL; Triglycerides 74 mg/dL (<150)
[2023-12-10 10:38] LABS: LDL Cholesterol Direct 104 mg/dL
[2023-12-10 11:01] LABS: Free T4 Free Thyroxine 1.28 ng/mL (0.78-2.19)
== END 2023-12-10 09:30 | disposition home or self-care (01) ==
LOC: ANHLAB 09:29
PROVIDERS: PCP Family Medicine; Visit Provider Family Medicine
DX: E04.9 Nontoxic goiter, unspecified (principal); Z13.220 Encounter for screening for lipoid disorders
CPT/HCPCS: 36415; 80061; 84439; 84443

== ENCOUNTER 2024-01-16 11:29 | Emergency (ER) | payer OTHER, SELFPAY ==
[2024-01-16 11:30] VITALS: BP 139/88; PULSE 80; RESP 20; TEMP 37; O2SAT 98
--- NOTE | 2024-01-16 11:40 | ED.GENADULT ---
HPI - General Adult General Chief complaint: Vaginal Bleeding Stated complaint: vaginal bleeding Time Seen by Provider: 01/16/24 11:40 Source: patient Mode of arrival: ambulatory Limitations: no limitations History of Present Illness HPI narrative: 28-year-old white female 2 para 1 Ab 0 last menstrual period was November 17, had a test a little over week ago which was positive. Eight weeks 3 days, EDC August 24, 2024 patient had a positive test 5 days ago and schedule a follow-up appoint with her procurement engineer January [address] Braxton she had a brownish discharge last night and little bit this morning and then she had heavier bleeding with clots of blood when she voided. She has had some suprapubic pubic discomfort. Denies any dysuria. Hist chronic back from sciatica which is is getting better and not changed since this episode. Denies any other bleeding. She occasionally had some bruising on her right arm a few days ago. Otherwise no other bruising. No other swelling lumps or bumps problems walking talking seeing or hearing cough fever sore throat difficulty breathing shortness of breath runny nose or sore throat or any other complaints. 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 Drinks occasionally does not smoke or do any drugs. Related Data Home Medications Medication Instructions Recorded Confirmed phentermine 37.5 mg capsule 37.5 mg PO DAILY 03/03/23 01/16/24 Allergies Allergy/AdvReac Type Severity Reaction Status Date / Time No Known Allergies Allergy Verified 03/03/23 11:09 Review of Systems Review of Systems: All systems reviewed & are unremarkable except as noted in HPI and below PMFSH Past Medical History Medical History Goiter History of gestational diabetes History of pineal cyst PCOS (polycystic ovarian syndrome) Surgical History Surgical History Delivery by section History of section Family History Family History Father Alcoholism Depression Grandparent Diabetes mellitus Uterine cancer Hypertension Cerebrovascular accident Grandparent Cancer Social History Social History Smoking status: Never smoker Alcohol intake: current Alcohol use details: 1 glass of wine maybe once a month Substance use: never Lack of Transportation: No Lack of Food: Never True Current Housing: I Have Housing Concerned About Future Housing: No Difficulty Paying Gas/Electric Bills: No Difficulty Paying for Meds: No Currently Unemployed: No Education: Bachelor's Degree Difficulty w/ Childcare or Family Care: No Living arrangements: with family Occupation/Education: occupation Gender identity (if verbalized by the patient): Female Sexual Orientation (if Verbalized by the Patient): Straight or Heterosexual Spiritual care concerns: No Exam Narrative: White female patient with no apparent distress.? Head normocephalic, atraumatic.? Eyes conjunctiva pink sclera nonicteric.? Extraocular movements are intact.? Ears externally normal.? Oropharynx is clear with moist mucous membranes without exudates.? Neck is supple nontender no lymphadenopathy.? Back is nontender.? Lungs are clear.? Heart is regular rate and rhythm without murmurs gallops or rubs.? Chest wall nontender.? Back is nontender. Abdomen is soft and Has mild suprapubic tenderness. She has no hepatosplenomegaly or masses no CVA tenderness no abdominal bruits.? Extremities no cyanosis clubbing or edema.? Skin is warm and dry without rashes or lesions.? Neurological patient is alert and oriented x4.? Mot
[2024-01-16 12:32] LABS: Hematocrit 36.7 % (35.0-49.0); Hemoglobin 12.7 g/dL (12.0-15.0); Mean Corpuscular HGB Conc 34.6 g/dL (32-36); Mean Corpuscular Hemoglobin 31.4 pg (27.0-31.0); Mean Corpuscular Volume 90.8 fL (78.0-102.0); Mean Platelet Volume 9.7 fl (9.2-11.8); Platelet Count Result 196 K/mm3 (150-420); Red Blood Count 4.04 M/mm3 (4.20-5.40); Red Cell Distribution Width 12.4 % (11.6-14.4); White Blood Count 6.7 K/mm3 (4.8-10.8)
[2024-01-16 12:37] LABS: Appearance Urine Clear (Clear); Bilirubin Urine Negative (Negative); Blood Urine 3+ (Negative); Glucose Urine UA Negative (Negative); Ketones Urine Negative (Negative); Leukocyte Esterase Ur 1+ LEU/UL (Negative); Nitrate Urine Negative (Negative); Protein Urine Negative (Negative); Urobilinogen Urine 0.2 mg/dL (0.2-1.0)
--- NOTE | 2024-01-16 12:42 | PC.NURSE ---
Assist w/ vaginal exam, gave extra lubricant pouches, and gave him magnolia chair to assist with exam
[2024-01-16 12:45] LABS: Add Urine Microscopic? YES; Color Urine Yellow (Yellow)
[2024-01-16 12:46] LABS: Squamous Epithelial Cell Urine Occasional /hpf (Few)
[2024-01-16 12:49] LABS: Partial Thromboplastin Time 25.1 Sec (23.9-30.70); Prothrombin Time 11.3 Seconds (9.50-12.1)
[2024-01-16 12:56] LABS: Alanine Aminotransferase 17 U/L (14-59); Albumin Level 3.9 g/dL (3.4-5.0); Alkaline Phosphatase 55 U/L (46-116); Anion Gap 9 mmol/L (4-12); Aspartate Amino Transferase 11 U/L (15-37); Beta HCG Quantitative < 1.00 mIU/mL (0-6); Bilirubin,Total 0.7 mg/dL (0.00-1.00); Blood Urea Nitrogen 13 mg/dL (7-18); Calcium 8.6 mg/dL (8.5-10.1); Carbon Dioxide 25 mmol/L (21-32); Chloride 102 mmol/L (98-108); Estimated CRCL calculation 99 ml/min; Estimated Glomerular Filt Rate > 60; Glucose 102 mg/dL (70-99); Osmolality Calculated 282 mOsm/kg (285-295); Potassium 3.3 mmol/L (3.5-5.1); Sodium 136 mmol/L (136-145); Total Protein 7.2 g/dL (6.4-8.2)
[2024-01-16 13:57] VITALS: BP 150/89; PULSE 83; RESP 20; TEMP 36.6; O2SAT 95
--- NOTE | 2024-01-19 15:32 | PC.NURSE ---
FINAL URINE CULTURE RESULTS: ISOLATE 1 : 10,000-49,000 CFU/ML OF ESCHERICHIA COLI, PER DR STONE AND C&S, NO CHANGE IN TREATMENT NEEDED.
== END 2024-01-16 14:01 | disposition home or self-care (01) ==
PROVIDERS: Emergency Provider Emergency Medicine; PCP Family Medicine
DX: N39.0 Urinary tract infection, site not specified (principal); E87.6 Hypokalemia
CPT/HCPCS: 36415; 80053; 81001; 84702; 85027; 85610; 85730; 86900; 86901; 87077; 87086; 87088; 87186; 99283

== ENCOUNTER 2024-02-10 09:24 | Outpatient (CLI) | payer OTHER, SELFPAY ==
--- NOTE | ~2024-02-10 | MR_ITS ---
Procedure: MR lumbar spine wo con Ordering provider: Maryann Lang MD History: . LUMBAR RADICULOPATHY . Comparison: None. Technique: MRI lumbar spine without contrast. FINDINGS: SPINAL CORD: Normal. The cord ends at the level of L1. VERTEBRAL BODIES: Normal height and alignment. No compression fracture. Normal marrow signal. Hemangi everardo of S1. DISK SPACES: Degenerative disc disease at the level of L4-5 and L5-S1. L1-L2: Normal. L2-L3: Normal. L3-L4: Normal. L4-L5: Diffuse disc bulge with mild central protrusion. No significant intervertebral foraminal narro wing. L5-S1: Severe spinal canal stenosis. Disc and nerve root compression extrusion with narrowing of the left lateral recess PARASPINOUS SOFT TISSUES: Normal. IMPRESSION: No compression fracture. Disc extrusion at the level of L5-S1 with severe spinal canal stenosis and nerve root compression in the left lateral recess. Reviewed, dictated and finalized at location A. IMPRESSION: No compression fracture. Disc extrusion at the level of L5-S1 with severe spinal canal stenosis and nerv e root compression in the left lateral recess.
== END 2024-02-10 09:25 | disposition home or self-care (01) ==
LOC: ANHIMG 09:27
PROVIDERS: PCP Family Medicine; Visit Provider Physical Medicine & Rehabilitation Pain Medicine
DX: M51.27 Other intervertebral disc displacement, lumbosacral region (principal); M48.07 Spinal stenosis, lumbosacral region
CPT/HCPCS: 72148

== ENCOUNTER 2024-10-03 15:54 | Outpatient (RCR) | payer OTHER, SELFPAY ==
--- NOTE | 2024-10-03 17:02 | OPREHPOC ---
Outpatient Therapy Plan of Care This is a Multidisciplinary Plan of Care that may contain components documented by all disciplines (PT, OT, and ST.) PT Problem 1 PT Problem #1 Knowledge Deficit PT Goal 1 Goal / Goal Update Independent and compliant with HEP. Target Visit 4 PT Problem 2 PT Problem #2 Impaired Strength PT Goal 1 Goal / Goal Update Pt to improve bilat hip flexion strength to 5/5. Pt to improve L ankle DF strength to 5/5. Pt to improve upper and lower abdominal strength to 4+/5. Target Visit 10 PT Problem 3 PT Problem #3 Impaired Functional Mobility PT Goal 1 Goal / Goal Update Pt to report less than 10% disability on back index. Target Visit 10
--- NOTE | 2024-10-03 17:02 | PTOPEVAL1 ---
Assessment and note entered by Herlinda Rodriguez, PT Evaluation Information Assessment Status Evaluation ICD-10 Condition Codes (PT) Pain in low back M54.50 Other ICD-10 Condition Codes ( M51.16 PT) Onset 06/29/2023 Subjective Information Pt reports her low back pain started in June 2023, states she was going to hot yoga classes and thinks she messed up her back. She continued yoga and stretching, saw a chiropractor and states her back got worse. She then saw a PT which helped her carey-to-day and she eventually plateaued in her progress. She went back to the doctor and got a steroid injection in December 2023 and her pain has been minimal since then. However a few weeks ago she was climbing stairs and her knees gave out, causing her to fall (she also played volley ball the night before). She took some gabapentin and alternating Tylenol and Ibuprofen and that helped slightly. Since the fall she's had weakness and tingling in her L foot. She will be starting a steroid pack. Low back pain is minimal at this time but is aggravated when bending forward. Pt also has a TENS unit at home that she used to use. Reported Pain Level Pain Score 0: Self Report Assessment PT Clinical Summary Mrs. Daley is a 28 yo female who enters the clinic with complaints of low back pain with radicular symptoms down the left leg. Her back pain is minimal at this time after receiving a cortisone shot last December and she will be starting a steroid pack this week. She demonstrates core and proximal hip weakness and radicular symptoms are reproduced with combined knee extension and ankle dorsiflexion. She will benefit from skilled PT intervention to improve on these deficits to be able to perform functional tasks with less pain and radicular symptoms. Plan of Care Interventions Electrical Stimulation,Gait Training,Hot Pack/Cold Pack,Manual Therapy,Mechanical Traction,Neuro Re- education,Patient/Caregiver Education,Therapeutic Activities,Therapeutic Exercise,Self-Care/Home Management PT Services Indicated Yes Treatment Frequency and 2x/week for 10 visits Duration These treatments will address the objective and functional deficits as defined above. The patient will be advanced safely and appropriately in order for the patient to progress towards his/her prior level of function. Additional exercises will be introduced and as well as a comprehensive home exercise program upon discharge, if needed, ?to ensure carryover of functional gains achieved in the clinic. This treatment plan has been reviewed and agreement upon by the patient.
--- NOTE | 2025-02-06 17:26 | PCPTNOTE ---
Mrs. Daley was seen for 2 skilled PT visits for low back pain with radiculopathy. She has not returned to PT since October 01 of this year and has not gotten back to us after calling her. She has been automatically discharged from [facility] and her chart will be discharged this date. Herlinda Rodriguez, DPT 02/06/2025
== END 2025-01-01 23:59 | disposition home or self-care (01) ==
LOC: CHSPT 15:54
PROVIDERS: Visit Provider Neurological Surgery
DX: M51.16 Intervertebral disc disorders with radiculopathy, lumbar region (principal)
CPT/HCPCS: 97110; 97112; 97161

== ENCOUNTER 2024-10-31 09:33 | Outpatient (CLI) | payer OTHER, SELFPAY ==
--- NOTE | ~2024-10-31 | US_ITS ---
Pelvic ultrasound. Clinical History: First trimester , establish dates and viability Technique: Realtime transabdominal and transvaginal scanning of the pelvis was performed. Color flow Doppler and Doppler spectral analysis were performed. Findings: The uterus is anteverted, and contains an intrauterine gestation. [place]-rump length of 1.5 cm corresponds to an estimated gestational age of 7 weeks 6 days. heart rate is 167 bpm. Yolk s ac also present. The right ovary measures 3.3 x 2.9 x 2.1 cm. No significant right ovarian or adnexal mass is seen. The left ovary measures 2.5 x 2.3 x 3.1 cm. No significant left ovarian or adnexal mass is seen. There is no evidence of free fluid in the cul de sac. Impression: Live intrauterine gestation, with estimated gestational age of 7 weeks 6 days. heart rate is 16 7 bpm. Reviewed, dictated and finalized at [facility]. Impression: Live intrauterine gestation, with estimated gestational age of 7 weeks 6 days. heart rate is 167 bpm.
--- OUTSIDE RECORDS SUMMARY | 2024-10-31 10:15 | XMS_ITS | Data Portability ---
Author Organization [facility], Main Office Address [address] [place] [address] Assessment Encounter Date Assessment Date Assessment LastModified by Organization Details LastModified Time 07/15/2023 07/15/2023 The patient gave verbal consent using services and the consent is documented in the medical record prior to using the service. The patient has been informed of what a TeleMedicine visit is. Patient is located at . Provider is located at office. Names and roles of persons in addition to the patient and provider participating in telemedicine services include . The patient had a minute TeleMedicine consultation via [employer] to discuss the following: [email or web address] Not available 07/18/2023 09:22:45 Plan of Treatment Reminders Order Date Submit Date Provider Last Modified By Organization Details Last Modified Time Details Appointments None recorded. Lab hemoglobin A1C, fingerstick 2022 023 [facility] [address] [place], [place], [address], 3 09:03:34 Referral None recorded. Procedures None recorded. Surgeries None recorded. Imaging US, thyroid 2022 023 [facility] , [place], [address], 3 13:55:44 Medication Orders phentermine 37.5 mg tablet 2023 024 [facility], [address] [facility], [place], [id number], 4 12:20:15 Zepbound 2.5 mg/0.5 mL subcutaneou s pen injector 2023 024 [facility], [address], [place], [place], [id number], 4 12:21:19 phentermine 37.5 mg tablet 2023 024 [facility] #45036, [address], [place], [place], [id number], 4 12:50:44 Wegovy 0.25 mg/0.5 mL subcutaneou s pen injector 2022 023 [facility], [address], [place], [place], [id number], 3 16:13:16 Patient TargetsNo targets recorded. Patient Instructions Encounter Date Encounter Id Patient Instructions Last Modified By Organization Details Last Modified Time 07/15/2023 [id number] Due to the COVID-19 (Novel Coronavirus) pandemic, it is within this context (and with the understanding that this method of patient encounter is in the patient s best interest as well as the health and safety of other patients and the public) that telehealth is being provided for this patient encounter rather than a lnih-rj-fekc visit. This patient encounter is appropriate at this time. This patient has been advised of the potential risks and limitations of this mode of treatment (including, but not limited to, the absence of in-person examination) and has agreed to be treated in a remote fashion despite these risks. Any and all of the patient s/patient s family s questions on this issue have been answered, and I have made no promises or guarantees to the patient. The patient has also been advised to contact this office for worsening conditions or problems, and seek emergency medical treatment and/or call 911 if the patient deems either necessary. HPI and/or vitals, if listed, were provided by the patient. counseled , is coping , talking [email or web address] Not available 07/18/2023 09:23:54 Reason for Referral None Reported. Results Created Date Observation Date Name Description Value Unit Range Abnormal Flag Note LastModifiedBy Organization Detail LastModifiedTime 01/24/20 23 01/23/2023 hemog lobin A1C, finge rstic k HgbA1C 5.2 Not Available [facility] [address] [place], [place], [address], 01/22/2023 21:27:14 11/15/19 23 11/14/2022 US, obste tric, bioph ysica l profi le + non-s tress test No observ ation record ed. [address] [facility], [place], [address], 11/17/2022 09:40:49 11/22/19 23 11/21/2022 US, obste tric, bioph ysica l profi le + non-s tress test No observ ation record ed. [address] [address], [place], [address], 11/25/2022 08:26:41 11/25/19 23 11/24/2022 US, obste tric, bioph ysica l profi le No observ ation record ed. [address] [address], [place], [address], 11/25/2022 08:24:48 11/28/19 23 11/27/2022 US, obste tric, bioph ysica l profi le + non-s tress test No observ ation record ed. [address] [address], [place], [address], 11/27/2022 10:55:02 01/29/20 US, head + neck, soft tissu e [facility] [address] [place] [address] Patien t Name: JAMES PUENTES Access ion #: [id number] Sex: F : 1995 7 3 Dictat ed By: Tremayne Heredia Attend ing Physic homar: NICOLA IB, RUNDA Orderi ng Physic homar: ELHARDYAT IB, RUNDA Exam Date: 2022 12:56 PM Exam Name: US NECK/H EAD SOFT TISSUE Admitt ing Diagno sis(es ): Clinic al Indica tion: Compar radha: None TECHNI QUE: Sonogr aphic evalua tion of the thyroi d gland is perfor med FINDIN GS: The right thyroi d gland measur es 5.1 x 1.9 x 1.6 cm. The left thyroi d gland measur es 4.2 x 2 x 2 cm. The thyroi d isthmu s is unrema rkable and measur es 5 mm. There is normal bilate ral thyroi d gland contou r and morpho logy. There is normal thyroi d parenc hymal echote xture. Nodule s: RIGHT: There are no thyroi d nodule s detect ed. LEFT: There are no thyroi d nodule s detect ed. There is no adjace nt jugula r chain lympha denopa thy. IMPRES TREE: Unrema rkable thyroi d ultras ound. Recomm endati ons for Thyroi d Nodule s 1 cm or Larger in [facility] er: AJR: 178, August 2001 ULTRAS OUND FEATUR E RECOMM ENDATI ON Solita ry Nodule Page 1 [facility] [address] [address] Patien t Name: JAMES PUENTES Access ion #: [id number] Sex: F : 1995 7 3 Dictat ed By: Tremayne Heredia Attend ing Physic homar: NIVIA, NICOLA IB Orderi ng Physic homar: NICOLA AUGUSTINE RUNDA Exam Date: 2022 12:56 PM Exam Name: US NECK/H EAD SOFT TISSUE Admitt ing Diagno sis(es ): - Microc alcifi cation s - Strong ly consid er US-terri ded FNA if > 1 cm - Solid or coarse calcif icatio ns - Strong ly consid er US-terri ded FNA if > 1.5 cm - Mixed solid and cystic - Consid er US-terri ded FNA if > 2cm - None of the above but substa ntial growth - Consid er US-terri ded FNA - Almost entire ly cystic and none of the above - US-terri ded FNA probab ly unnece ssary Multip le Nodule s - Consid er US-terri ded FNA of one or more nodule s, with select ion priori tized on basis of criter ia (in order listed ) for solita ry nodule . SL: -IC- PHAM1 Electr onical ly Signed by: Tremayne Heredia at 2022 12:51: 11 PM Page [address] (Imaging) [address] [place], [address], 01/29/2023 12:07:35 01/29/20 23 01/27/2023 US, thyro id No observ ation record ed. [address] [place], [address], 01/29/2023 12:07:50 Result Notes None recorded. Problems Name Problem SNOMED Code Status Onset Date Resolution Date Notes Provider Name and Address Organization Details Recorded Time Goiter 3332571 Active 023 Nivia Barton MD [address] [facility], [address], [address] , [employer] 3 16:08:20 Obesity 607278221 Active 023 Nivia Barton MD [address] [facility], [place] [employer] [address], [address] , [employer] 3 16:10:06 Normal grief reaction 458761261 Active 024 SANAZ Paniagua [address] [facility] [address], [address] , [employer] [facility] 4 09:22:11 Problem Notes None recorded. Procedures Surgical History None recorded. Imaging Results Imaging Date Name Status LastModified by Organiz ation Details LastModified Time 11/14/2022 US, obstetric, biophysical profile + non-stress test completed [address], [place], [address], 11/17/2022 09:40:49 11/21/2022 US, obstetric, biophysical profile + non-stress test completed [address], [place], [address], 11/25/2022 08:26:41 11/24/2022 US, obstetric, biophysical profile completed [address], [place], [address], 11/25/2022 08:24:48 11/27/2022 US, obstetric, biophysical profile + non-stress test completed [address] [address], [place], [address], 11/27/2022 10:55:02 01/28/2023 US, head + neck, soft tissue completed [address] ([facility]) [address] [place], [address], 01/29/2023 12:07:35 01/27/2023 US, thyroid completed [address] [place], [address], 01/29/2023 12:07:50 Procedure Notes None recorded. Medical Equipment None Reported. Allergies No known drug allergies Medications Name Sig Start Date Stop Date Status Note LastModified by Organization Details LastModified Time Mirena 21 mcg/24 hr (up to 8 years) 52 mg intrauterine device active Not Available Not Available Not Available Nystop 100,000 unit/gram topical powder active Not Available Not Available Not Available Zithromax Z-Elver 250 mg tablet TAKE 2 TABLETS (500 MG) BY ORAL ROUTE ONCE DAILY FOR 1 DAY THEN 1 TABLET (250 MG) BY ORAL ROUTE ONCE DAILY FOR 4 DAYS active Not Available Not Available No t Available phentermine 37.5 mg tablet TAKE 1 TABLET BY MOUTH EVERY DAY active Not Available Not Available No t Available amoxicillin 500 mg tablet active Not Available Not Available Not Available oxycodone-ac etaminophen 5 mg-325 mg tablet active Not Available Not Available Not Available cephalexin 500 mg capsule active Not Available Not Available Not Available NuvaRing 0.12 mg-0.015 mg/24 hr vaginal active Not Available Not Available Not Available bupropion HCl XL 150 mg 24 hr tablet, extended release active Not Available Not Available Not Available nitrofuranto in monohydrate/ macrocrystal s 100 mg capsule active Not Available Not Available Not Available OneTouch Verio test strips active Not Available Not Available Not Available BD Tita 2nd Gen Pen Needle 32 gauge x 5/32 active Not Available Not Available Not Available Wegovy 0.25 mg/0.5 mL subcutaneous pen injector Inject by subcutaneou s route for 28 days. 2022 active Not Available Not Available Not Avai lable Dexcom G7 Sensor device active Not Available Not Available Not Available Zepbound 2.5 mg/0.5 mL subcutaneous pen injector Inject by subcutaneou s route for 28 days. 2023 active Not Available Not Available Not Avai lable Vitals Date Recorded Body height Provider Name an d Address Organization Details Last Updated DateTime 10/04/2020 167.64 cm Not Available [facility] 3 22:06:45 Date Recorded Body height Body mass index (BMI) Body weight Body temperature Heart rate Oxygen saturation Oxygen saturation in Arterial blood by Pulse oximetry Systolic blood pressure Diastolic blood pressure Provider Name and Address Organization Details Last Updated DateTime 3 167.64 cm 36.6 kg/m2 200439. 47 g 98.2 [degF] 98 /min 99 % 99 % 130 mm[Hg] 80 mm[Hg] ROBERT Erazo [facility] 3 15:58:34 Date Recorded Body height Body mass index (BMI) Body weight Body temperature Heart rate Oxygen saturation Oxygen saturation in Arterial blood by Pulse oximetry Systolic blood pressure Diastolic blood pressure Provider Name and Address Organization Details Last Updated DateTime 3 167.64 cm 36.5 kg/m2 314107. 88 g 96.8 [degF] 101 /min 98 % 98 % 122 mm[Hg] 80 mm[Hg] ROBERT Erazo [place] [employer] [facility] 3 15:56:46 Date Recorded Body height Body mass index (BMI) Body weight Body temperature Heart rate Oxygen saturation Oxygen saturation in Arterial blood by Pulse oximetry Systolic blood pressure Diastolic blood pressure Provider Name and Address Organization Details Last Updated DateTime 4 167.64 cm 31 kg/m2 58964.7 4 g 97.6 [degF] 76 /min 98 % 98 % 132 mm[Hg] 88 mm[Hg] Kristan Callejas MA [employer] 4 12:05:26 Social History None recorded. Functional Status None recorded. Mental Status None recorded. Family History Nothing Reported. Medical History No medical history recorded. Gynecological HistoryNo gynecological history recorded. Obstetrics History GPAL:G 0 P 0 0 0 0 Immunizations Vaccine Type Date Status Note Provider Nam e and Address Organization Details Recorded Time Tdap 09/27/2022 completed Kaitlin García RN [facility], [employer] 09/29/2022 16:31:07 Past Encounters Encounter ID Performer Location Encounter Start Date Encounter Closed Date Diagnosis/Indication Diagnosis SNOMED-CT Code Diagnosis ICD10 Code Diagnosis Note [id number] Nivia Barton MD [facility] [place] [address] [place] [address] [place] [address] 10/04/2020 00:00:00 10/04/2020 18:37:34 [id number] Nivia Barton MD [facility] Jn [place] [facility] [place] [address] 12/25/2022 15:51:30 12/25/2022 16:11:04 Past history of gestational diabetes mellitus 683158210 Z86.32 Will do A1C at 1 month Adult heal th examination 827723639 Z00.00 [id number] Nivia Barton MD [facility] [place] [address] [place] [address] [place] [address] 01/22/2023 15:51:42 01/22/2023 16:15:15 Past history of gestational diabetes mellitus 002033731 Z86.32 A1C is 5.2% not diabetic Goiter 6047538 E04.9 Obesity 232697452 E66.9 F/u in 2 months [id number] Nivia Barton MD [facility] [address] [facility] [place] [address] 07/15/2023 11:20:05 07/15/2023 12:09:32 Obesity 372878875 E66.9 Normal grief reaction 27 3992454 F43.20 [id number] Nivia Barton MD [facility] [place]n [place]sh[place] [address] [facility] [place] [address] 08/07/2023 11:59:23 08/07/2023 12:37:56 Obesity 357941030 E66.9 Goiter 5195402 E04.9 Normal grief reaction 27 1062678 F43.20 Health Concerns Section Related Observation LastModified by Organization Detai ls LastModified Time None Recorded Concern Status LastModified by Organization Details LastModified Time None Recorded Advance Directives Directive None Recorded Payers Encounter Date Sequence Insurance Name Policy Number Policy Hawk Covered Member ID Hawk Member ID Guarantor Name 12/25/2022 1 [employer] - CHOICE (POS II) [id number] [facility] [id number] [facility] 01/22/2023 1 [employer] - CHOICE (POS II) [id number] [facility] [id number] [facility] 07/15/2023 1 [employer] - CHOICE (POS II) [id number] [facility] [id number] [facility] 08/07/2023 1 [employer] - CHOICE (POS II) [id number] [facility] [id number] [facility] Notes Date Note Type Note Provider Name and Address Organization Details Recorded Time 12/25/2022 text/html Here today for annual physical. Had gestational diabetes is 3 weeks . No issues feels really good. Has not had A1C needs it done in 8 weeks. Had c/sec. There is fmhx of DM. Nivia Barton MD [address] [place] [address], [facility] [address], [place], [address], [facility] [employer] [facility] 12/25/2022 18:29:13 01/22/2023 text/html Here today for A 1C check Had Gestational DM. Has no sxs of DM. Took insulin with . Is concerned about weight. Wants to get weight off. Pt has a goiter and wants this worked up. Nivia Barton MD [address], [place], [address], [employer] 01/22/2023 21:28:29 07/15/2023 text/html 37 y/o lost grandpa last week. needs refill SANAZ Paniagua [address], [place], [address], [employer] 08/23/2023 17:38:07 08/07/2023 text/html needs refill , plus wants to add a med to lose weight further SANAZ Paniagua [address], [place], [address], [employer] 08/16/2023 09:19:37 OBGyn Episode No OBEpisode recorded.
== END 2024-10-31 09:34 | disposition home or self-care (01) ==
PROVIDERS: Visit Provider Nurse Practitioner Obstetrics & Gynecology
DX: Z34.91 Encounter for supervision of normal pregnancy, unspecified, first trimester (principal); Z3A.01 Less than 8 weeks gestation of pregnancy
CPT/HCPCS: 76801; 76817

== ENCOUNTER 2024-11-25 11:46 | Outpatient (CLI) | payer OTHER, SELFPAY ==
--- OUTSIDE RECORDS SUMMARY | 2024-11-25 11:54 | XMS_ITS | Data Portability ---
Author Organization [facility] 1-800-DOCTORS, Main Office Address [address] [place] [address] Assessment Encounter Date Assessment Date Assessment LastModified [...] patient had a minute TeleMedicine consultation via [employer] to discuss the following: Not available 07/18/2023 09:22:45 Plan of Treatment Reminders Order Date Submit Date Provider Last Modified By Organization Details Last Modified Time Details Appointments None recorded. Lab hemoglobin A1C, fingerstick 2022 023 [facility] [address] [place], [place], [address], 3 09:03:34 Referral None recorded. Procedures None recorded. Surgeries None recorded. Imaging US, thyroid 2022 023 Replaced by [facility] , [place], [address], 3 13:55:44 Medication Orders phentermine 37.5 mg tablet 2023 024 [id number], 2 [facility], [place], [id number], 4 12:20:15 Zepbound 2.5 mg/0.5 mL subcutaneou s pen injector 2023 024 [place] [facility][id number], [address], [place], [place], [id number], 4 12:21:19 phentermine 37.5 mg tablet 2023 024 [facility] #[id number], [address], [place], [place], [id number], 4 12:50:44 Wegovy 0.25 mg/0.5 mL subcutaneou s pen injector 2022 023 [place] [id number], [address], [place], [place], [id number], 3 16:13:16 Patient TargetsNo targets recorded. Patient Instructions Encounter Date Encounter Id Patient Instructions Last Modified By Organization Details Last Modified Time 07/15/2023 [id number] Due to the COVID-19 (Novel Coronavirus) pandemic, it is within this context (and with the understanding that this method of patient encounter is in the patient s best interest as well as the health and safety of other patients and the public) that telehealth is being provided for this patient encounter rather than a ezuf-ak-lblb visit. This patient encounter is appropriate at [...] patient. counseled , is coping , talking [email or web address] Not available 07/18/2023 09:23:54 Reason for Referral None Reported. Results Created Date Observation Date Name Description Value Unit Range Abnormal Flag Note LastModifiedBy Organization Detail LastModifiedTime 01/24/20 23 01/23/2023 hemog lobin A1C, finge rstic k HgbA1C 5.2 Not Available [facility] [address] [place], [place], [address], 01/22/2023 21:27:14 11/15/19 23 11/14/2022 US, obste tric, bioph ysica l profi le + non-s tress test No observ ation record ed. [address] [facility], [place], [address], 11/17/2022 09:40:49 11/22/19 23 11/21/2022 US, obste tric, bioph ysica l profi le + non-s tress test No observ ation record ed. [address] [address], [place], [address], 11/25/2022 08:26:41 11/25/19 23 11/24/2022 US, obste tric, bioph ysica l profi le No observ ation record ed. [address] [address], [place], [address], 11/25/2022 08:24:48 11/28/19 23 11/27/2022 US, obste tric, bioph ysica l profi le + non-s tress test No observ ation record ed. [address] [address], [place], [address], 11/27/2022 10:55:02 01/29/20 US, head + neck, soft tissu e [facility] [address] [place] [address] Patien t Name: JAMES PUENTES Access ion #: [id number] Sex: F : 1995 7 3 [...] Nodule s 1 cm or Larger in [place] er: AJR: 178, August 2001 ULTRAS OUND FEATUR E RECOMM ENDATI ON Solita ry Nodule Page 1 [facility] [address] [address] Patien t Name: JAMES PUENTES Access ion #: [id number] Sex: F : 1995 7 [birth year] [...] ) for solita ry nodule . SL: HM-IC- PHAM1 Electr onical ly Signed by: Tremayne Heredia at 2022 12:51: 11 PM Page [address] (Imaging) [address] [place], [address], 01/29/2023 12:07:35 01/29/20 23 01/27/2023 US, thyro id No observ ation record ed. [address] [place], [address], 01/29/2023 12:07:50 Result Notes None recorded. Problems Name Problem SNOMED Code Status Onset Date Resolution Date Notes Provider Name and Address Organization Details Recorded Time Goiter 6836476 Active 023 Nivia Barton MD [address], [address] , [employer] 3 16:08:20 Obesity 716057356 Active 023 Nivia Barton MD 2[address] [facility] [address], [address] , [employer] 3 16:10:06 Normal grief reaction 936607444 Active 024 SANAZ Paniagua [address] [facility] [address], [address] , [employer] 4 09:22:11 Problem Notes None recorded. Medical Equipment None Reported. [...] 2nd Gen Pen Needle 32 gauge x / active Not Available Not Available Not Available [...] Avai lable Vitals Date Recorded Body height Body mass index (BMI) Body weight Body temperature Heart rate Oxygen saturation Oxygen saturation in Arterial blood by Pulse oximetry Systolic blood pressure Diastolic blood pressure Provider Name and Address Organization Details Last Updated DateTime 4 167.64 cm 31 kg/m2 57493.7 4 g 97.6 [degF] 76 /min 98 % 98 % 132 mm[Hg] 88 mm[Hg] Kristan Callejas MA [place] [facility] [place] [facility]-DOCTORS 4 12:05:26 Date Recorded Body height Provider Name an d Address Organization Details Last Updated DateTime 10/04/2020 167.64 cm Not Available [facility] 3 22:06:45 Date Recorded Body height Body mass index (BMI) Body weight Body temperature Heart rate Oxygen saturation Oxygen saturation in Arterial blood by Pulse oximetry Systolic blood pressure Diastolic blood pressure Provider Name and Address Organization Details Last Updated DateTime 3 167.64 cm 36.6 kg/m2 538160. 47 g 98.2 [degF] 98 /min 99 % 99 % 130 mm[Hg] 80 mm[Hg] Romykaryna Velez Laney [facility] [employer] [facility] 3 15:58:34 Date Recorded Body height Body mass index (BMI) Body weight Body temperature Heart rate Oxygen saturation Oxygen saturation in Arterial blood by Pulse oximetry Systolic blood pressure Diastolic blood pressure Provider Name and Address Organization Details Last Updated DateTime 3 167.64 cm 36.5 kg/m2 905630. 88 g 96.8 [degF] 101 /min 98 % 98 % 122 mm[Hg] 80 mm[Hg] Romy Velez Laney [facility] [employer] [facility] 3 15:56:46 Social History None recorded. Functional Status None recorded. Mental Status None recorded. Family History Nothing Reported. Medical History No medical history recorded. Gynecological HistoryNo gynecological history recorded. Obstetrics History GPAL:G 0 P 0 0 0 0 Immunizations Vaccine Type Date Status Note Provider Nam e and Address Organization Details Recorded Time Tdap 09/27/2022 completed Kaitlin García RN [facility], [facility] Local [employer] [facility] 09/29/2022 16:31:07 Past Encounters Encounter ID Performer Location Encounter Start Date Encounter Closed Date Diagnosis/Indication Diagnosis SNOMED-CT Code Diagnosis ICD10 Code Diagnosis Note [id number] Nivia Barton MD [facility] [place] [address] [facility] [place] [address] 10/04/2020 00:00:00 10/04/2020 18:37:34 [id number] Nivia Barton MD [facility] [place] [address] [facility] [place] [address] 12/25/2022 15:51:30 12/25/2022 16:11:04 Past history of gestational diabetes mellitus 592953857 Z86.32 Will do A1C at 1 month Adult [facility] [place] examination 869387943 Z00.00 [id number] Nivia Barton MD [facility] [place] [address] [facility] [place] [address] 01/22/2023 15:51:42 01/22/2023 16:15:15 Past history of gestational diabetes mellitus 297756915 Z86.32 A1C is 5.2% not diabetic Goiter 0009361 E04.9 Obesity 273602110 E66.9 F/u in 2 months [id number] Nivia Barton MD [facility] [place] [address] [facility] [place] [address] 07/15/2023 11:20:05 07/15/2023 12:09:32 Obesity 596278224 E66.9 Normal grief reaction 27 6282693 F43.20 [id number] Nivia Barton MD [facility] [place] [address] [facility] [place] [address] 08/07/2023 11:59:23 08/07/2023 12:37:56 Obesity 076125057 E66.9 Goiter 4525393 E04.9 Normal grief reaction 27 5036750 F43.20 Health Concerns Section Related Observation LastModified by Organization Detai ls LastModified Time None Recorded Concern Status LastModified by Organization Details LastModified Time None Recorded Advance Directives Directive None Recorded Payers Encounter Date Sequence Insurance Name Policy Number Policy Hawk Covered Member ID Hawk Member ID Guarantor Name 12/25/2022 1 [employer] (POS II) [id number] James Theodore [id number] James Daley 01/22/2023 1 [employer] (POS II) [id number] James Theodore [id number] James Thuy 07/15/2023 1 [employer] (POS II) [id number] James Theodore [id number] 25 James Thuy 08/07/2023 1 [employer] (POS II) [id number] James Theodore [id number] James Daley Notes Date Note Type Note Provider Name and Address Organization Details Recorded Time 12/25/2022 text/html Here today for annual physical. Had gestational diabetes is 3 weeks . No issues feels really good. Has not had A1C needs it done in 8 weeks. Had c/sec. There is fmhx of DM. Nivia Barton MD [address], [place], [address], Coco Controller 12/25/2022 18:29:13 01/22/2023 text/html Here today for A 1C check Had Gestational DM. Has no sxs of DM. Took insulin with . Is concerned about weight. Wants to get weight off. Pt has a goiter and wants this worked up. Nivia Barton MD [address], [place], [address], Coco Controller 01/22/2023 21:28:29 07/15/2023 text/html 37 y/o lost grandpa last week. needs refill SANAZ Paniagua [address], [place], [address], Coco Controller 08/23/2023 17:38:07 08/07/2023 text/html needs refill , plus wants to add a med to lose weight further SANAZ Paniagua [address], [place], [address], [employer] Controller 08/16/2023 09:19:37 OBGyn Episode No OBEpisode recorded.
[2024-11-25 13:12] LABS: Glucose 1 Hour PP 50gm Dose 98 mg/dL
== END 2024-11-25 11:47 | disposition home or self-care (01) ==
LOC: ANHLAB 11:52
PROVIDERS: PCP Family Medicine; Visit Provider Nurse Practitioner Obstetrics & Gynecology
DX: Z34.90 Encounter for supervision of normal pregnancy, unspecified, unspecified trimester (principal)
CPT/HCPCS: 36415; 82947

== ENCOUNTER 2025-03-31 08:58 | Outpatient (CLI) | payer OTHER, SELFPAY ==
--- OUTSIDE RECORDS SUMMARY | 2008-08-24 19:00 | XMS_ITS | Continuity of Care Document ---
Author Organization [facility] Address [address] [place] [address] Phone Care Team Providers Care Freight Brake Operator Name Role Phone Philip Peng MD Unavailable Unavailable Advance Directives Directive Yes / No Effective Date File Name No Information Encounters Encounter Description Practice Location Reason(s) For Visit Diagnoses Date Provider Providers Copied on Encounter [facility], [address], [place], [place], [id number], tel:[phone] Conversion Department No Information [phone]. [address] , [address], [place], [place], [id number] , [place]. tel: [phone] [facility], [address], [place], [place], [id number], tel:[phone] Conversion Department HYPOTHYROIDISM NOS [phone]. [address] , [address], [place], [place], [id number] , [place]. tel: [phone] Family History Family Member Type Diagnosis Age At Onset No Information Payers Payer name Insurance type Covered republican ID Authoriza tion(s) No Information Social History Type Description Quantity Date Captured Comments Sex Female Smoking Status No Information Chief Complaint And Reason For Visit No Information Reason For Referral Reason For Referral No Information History Of Present Illness Encounter Date Complaint History Of Prese nt Illness No Information Functional Status Date Functional Assessmen t No Information Instructions Date Instruction Additional Infor mation No Information Assessments Type Assessment Date No Information Patient Care Teams Name Effective Dates (start - stop) Status Members No Information
--- OUTSIDE RECORDS SUMMARY | 2019-03-17 06:01 | XMS_ITS | Continuity of Care Document ---
Author Organization [facility] Address [address] [place] [phone] Phone Care Team Providers Care Service Station Attendant Name Role Phone Aman OD, Lynsey Unavailable Unavailable Allergies, Adverse Reactions, Alerts Substance Reaction Status Criticality No Known Allergies Active No Inform ation Medications Medication Instructions Dosage Effective Dates (start - stop) Status Comments Wellbutrin SR 150 mg tablet, 12 hr sustained-release take 1 tablet by oral route every day 150 MG - Active Procedures Procedure Date Vision svcs frames purchases REFRACTION EYE EXAM, NEW PATIENT Advance Directives Directive Yes / No Effective Date File Name No Information Encounters Encounter Description Practice Location Reason(s) For Visit Diagnoses Date Provider Providers Copied on Encounter [facility], [address] [place] [address], [id number], [place] tel:[phone] [facility] No Information 9 Aman Lynsey. [address] [place] [address], [id number] , [place]. tel: [phone] [facility], [address] [place] [address], [id number], [place] tel:[phone] [facility] No Information 9 Aman Lynsey. [address] [place] [address], [id number] , [place]. tel: [phone] [facility], [facility], [address], [place], [id number], tel:[phone] [facility] blurry vision (chief complaint)P t. declines Wellness/Sc reening photos (chief complaint) Myopia, bilateralRegular astigmatism, left eye 9 Aman Menon. [address], [place], [id number] , [place]. tel: [phone] Family History Family Member Type Diagnosis Age At Onset Problem (finding) No family history of Ca taracts Problem (finding) No family hist ory of Macular degeneration Problem (finding) No family history of Hy pertension Problem (finding) No family history of Gl [place] Maternal grandmother Problem (finding) Diabetes mellit us Payers Payer name Insurance type Covered green party ID Authoriza tion(s) No Information Social History Type Description Quantity Date Captured Comments Sex Female Smoking Status No Information Chief Complaint And Reason For Visit No Information Reason For Referral Reason For Referral No Information History Of Present Illness Encounter Date Complaint History Of Prese nt Illness blurry vision The 23 Year old female presents for blurry vision in the right eye and left eye. It started about 3 month(s) ago. The onset was gradual. It affects distance vision. NVA is good and stable OU sc. The patient denies pain or discomfort. No eye meds or OTC AT. Pt. declines Wellnes s/Screening photos NOTE: Pt. declines Wellness/Screening photos Functional Status Date Functional Assessmen t No Information Instructions Date Instruction Additional Infor matamalia Impression/Plan Assessments Type Assessment Date No Information Patient Care Teams Name Effective Dates (start - stop) Status Members No Information
--- OUTSIDE RECORDS SUMMARY | 2025-03-31 09:08 | XMS_ITS | Clinical Summary ---
Author Organization [facility] Address [address] [place] [address] Care Team Providers Care Condemnation Engineer Name Role Phone Unavailable Primary Care Provider Unavailabl e Source Comments [facility],non-owned Affiliates and Associated Physician Practices is amultiple site organization consisting of ambulatory clinics and hospital sitesin [place], [place], [place] and [place]. This disclosure is being madepursuant to the Care Everywhere program and may not contain all information available regarding this patient. Last updated 18.[facility] Allergies No known active allergies Encounters Date Type Department Care Team Description 02/24/2025 1:40 PM CDT - 02/24/2025 11:59 PM CDT Hospital Encounter [facility] [address] [place] [id number] Coy Olson MD Polcaro, Joseph, DO BOX FEEDER Discharge Disposition: Home or Self Care 01/24/2025 2:20 PM CDT - 01/24/2025 11:59 PM CDT Hospital Encounter [facility] [address] [place] [phone] Denisse Del Valle MD Discharge Disposition: Home or Self Care from Last 3 Months Social History Tobacco Use Types Packs/Day Years Used Date Smoking Tobacco: Never Assessed Estimated Date of Delivery Comme nts Yes 06/13/2025 Based on Ultraso und Sex and Gender Information Value Date Recorded Sex Assigned at Not on file Legal Sex Female 3:52 PM CDT Gender Identity Not on file Sexual Orientation Not on file Plan of Treatment Upcoming Encounters Date Type Department Care Team (Late st Contact Info) Description 04/07/2025 8:15 AM CDT Hospital Encounter [facility] [address] [place] [id number] Health Maintenance Due Date Last Done Comments HIV SCREENING 10/21/2011 HEPATITIS C SCREENING 10/16/2014 DTAP/TDAP/TD VACCINES (1 - Tdap) 10/21/2015 HEPATITIS B VACCINE (1 of 3 - 19+ 3-dose series) 10/21/2015 PAP SMEAR 2017 HPV VACCINE (1 - 3-dose SCDM series) 10/21/2023 DEPRESSION SCREENING 06/29/2024 COVID-19 VACCINE (1 - 2023-2 5 season) 2025 INFLUENZA VACCINE (#1) 2025 04/04/2024 OB-ONE HOUR GLUCOSE 03/07/2025 OB-TDAP CURRENT 03/14/2025 OB-RHOGAM INJECTION 03/21/2025 Respiratory Syncytial Virus (RSV) Vaccine Pt: or over 60 yrs (1 - Risk 1-dose series) 04/18/2025 ZOSTER VACCINE (1 of 2) 2046 HIB VACCINE Aged Out No longer eligi ble based on patient's age to complete this topic MENINGOCOCCAL (Group B) VACC INE SHARED DECISION-MAKING Aged Out No longer eligibl e based on patient's age to complete this topic MENINGOCOCCAL GROUPS A/C/Y/W VACCINE Aged Out No longer eligible b ased on patient's age to complete this topic PNEUMOCOCCAL VACCINE Aged Out No long er eligible based on patient's age to complete this topic Procedures Procedure Name Priority Date/Time Associated Diagnosis Comments SONOGRAM - COMPLETE Routine 02/24/2025 2 :00 PM CDT Normal first in second trimester (HCC) 23 weeks gestation of (HCC) Encounter for follow-up ultrasound of anatomy (HCC) SONOGRAM - COMPLETE Routine 01/24/2025 2 :29 PM CDT Encounter for anatomic survey (HCC) Normal first in second trimester (HCC) from Last 3 Months Results * Sonogram - Complete (02/24/2025 2:00 PM CDT) Only the most recent of2 resultswithin the time period is included. Linked Results Indication ======== Incomplete anatomy History ====== OB History 2. Para 1 [id number] 1. live 2022. Gest. age 39 w + 0 d. Weight 3,884 g. Sex of child: male. Details: delivery Lab Tests Test Date Result NIPT Low risk, Female per patient Maternal Assessment Physical Exam Height 165 cm, 5 ft 5 in. Weight 103 kg, 228 lb. Initial weight 82 kg, 180 lb. BMI 37.94 kg/m . Initial BMI 29.95 kg/m . Weight gain 22 kg, 48 lb Method ====== Transabdominal ultrasound. View: Sufficient ========= Claudio . Number of fetuses: 1 Dating ====== Date Details Gest. age ANA Stated ANA 24 w + 3 d 06/13/2025 U/S 02/24/2025 based upon AC, BPD, Femur, HC 25 w + 3 d 06/06/2025 Assigned dating based on stated ANA, selected on 01/24/2025 24 w + 3 d 06/13/2025 General Evaluation Cardiac activity present. FHR 155 bpm. Presentation: cephalic Placenta: Placental site: posterior no previa Umbilical cord: Cord vessels: 3 vessel cord - previously documented. Insertion site: normal insertion Amniotic fluid: Amount of AF: normal. MVP 6.1 cm Biometry BPD 62.4 mm 25w 2d 74% Hadlock HC 227.3 mm 24w 5d 43% Hadlock AC 222.9 mm 26w 5d 95% Hadlock Femur 45.3 mm 25w 0d 55% Hadlock Humerus 41.4 mm 25w 0d 59% Ivonne HC / AC 1.02 Weight Calculation: EFW 858 g 93% Hadlock EFW (lb,oz) 1 lb 14 oz EFW by Hadlock ([id number]) LGA Growth Overview Exam date GA BPD (mm) HC (mm) AC (mm) FL (mm) HL (mm) EFW (g) 01/24/2025 20w 0d 46.8 56% 173.2 36% 153 62% 32.3 45% 32.5 85% 342 60% 02/24/2025 24w 3d 62.4 74% 227.3 43% 222.9 95% 45.3 55% 41.4 59% 858 93% Anatomy The following structures appear normal: Head / Neck Cavum septi pellucidi. Face Lips. Profile. Nose. Nasal bone. Orbits. Heart / Thorax 4-chamber view. RVOT view. 3-vessel view. 5-jblzdo-sksbkvb view. Situs. Bicaval view. Ductal arch view. Interventricular septum. Great vessels. Right lung. Left lung. Diaphragm. Abdomen Stomach. Kidneys. Bladder. Bowel. Genitals. Spine Cervical spine. Thoracic spine. Lumbar spine. Sacral spine. Extremities / Skeleton Feet. The following structures were documented previously: Head / Neck Cranium. Lateral ventricles. Choroid plexus. Midline falx. Cerebellum. Cisterna magna. Thalami. Nuchal fold. Heart / Thorax LVOT view. Aortic arch view. Abdomen Cord insertion. Extremities / Skeleton Arms. Hands. Legs. sex: female. Impression ========= Here today for completion of the anatomical survey and interval growth ultrasound. Single, live, intrauterine at 24w 3d The size is suspected LGA. The amniotic fluid volume is normal. Normal appearing posterior placenta. No evidence of an accreta. No major malformations were seen within the limits of ultrasound. The anatomical survey is now complete. Comment ======== The biometry is showing good interval growth in the estimated weight this suspected LGA. This may be either constitutional or possibly secondary to GDM and await patient's glucose screen. The amniotic fluid was normal and there was good movements noted. Normal appearing posterior placenta no evidence of an accreta. However ultrasound is not always diagnostic for an accreta and would recommend clinical correlation in light of prior section. The remainder of the anatomical survey showed no gross abnormalities. Both ultrasound and screening/testing have their limitations in detecting all congenital anomalies and chromosomal abnormalities/inher ited disorders or genetic syndromes. Follow-up ======== Due to suspected LGA recommend interval growth ultrasound in 6 weeks and depending on those findings will also determine further management. labor and preeclampsia precautions along with kick counts. Thank you for allowing us to partake in your patient's care. Coding ====== Diagnoses Z36.3: Encounter for screening for malformations Procedures 25139: US Preg Uterus Follow Up [facility] rVue PACS Anatomical Region Laterality Modality Other 02/24/2025 2:00 PM CDT us Oc Daugherty MD [facility] ORDERABLES Edited Result - Final from Last 3 Months Insurance [facility]
[2025-03-31 10:34] LABS: Hematocrit 31.7 % (37.0-47.0); Hemoglobin 10.4 g/dL (12.0-15.0); Mean Corpuscular HGB Conc 32.8 g/dl (32-36); Mean Corpuscular Hemoglobin 28.6 pg (26-34); Mean Corpuscular Volume 87.1 fl (80-100); Platelet Count Result 163 k/mm3 (150-375); Red Blood Count 3.64 M/mm3 (4.2-5.4); White Blood Count 7.1 K/mm3 (4.5-10.0)
[2025-03-31 10:43] LABS: Glucose 1 Hour PP 50gm Dose 153 mg/dL
[2025-03-31 11:23] LABS: HIV 1/2 Ab P24 Ag Result Negative (Negative)
[2025-03-31 13:18] LABS: Syphilis IgG/IgM Antibody Non-Reactive (Nonreactive)
== END 2025-03-31 08:59 | disposition home or self-care (01) ==
LOC: ANHLAB 08:59
PROVIDERS: PCP Family Medicine; Visit Provider Obstetrics & Gynecology
DX: Z34.90 Encounter for supervision of normal pregnancy, unspecified, unspecified trimester (principal)
CPT/HCPCS: 36415; 82947; 85027; 86593; 86703; G0432

== ENCOUNTER 2025-06-06 16:20 | Outpatient (RCR) | payer OTHER, SELFPAY ==
[2025-05-04 14:07] VITALS: BP 121/69; PULSE 96
[2025-05-09 10:41] VITALS: BP 124/61; PULSE 70
[2025-05-22 09:40] VITALS: BP 100/66; PULSE 74
--- NOTE | 2025-05-22 10:24 | PC.NURSE ---
RN notified SQUARING SHEAR OPERATOR of ASHLEY. SQUARING SHEAR OPERATOR gave orders for d/c.
[2025-05-26 11:28] VITALS: BP 108/60; PULSE 77
[2025-05-30 16:12] VITALS: BP 117/64; PULSE 93
[2025-06-02 17:35] VITALS: BP 126/59; PULSE 78
--- NOTE | ~2025-06-06 | US_ITS ---
EXAMINATION: US OB BPP wo non-stress DATE: 05/26/2025 12:11 PADDED BOX SEWER INDICATION: Bedside deceleration TECHNIQUE: Real-time transabdominal obstetric ultrasound. FINDINGS: 05/22/2025 There is a single living fetus in vertex presentation. The placenta is fundal without placenta previa. cardiac activity and movement is noted with a heart rate of 111 beats per minute. Biophysical profile: breathin of 2 movement: 2 of 2 tone: 2 of 2 Amniotic flud pocket: 2 of 2 Total score: 8 of 8 ASHLEY is normal measuring 10.6 cm. IMPRESSION: 1. Single living intrauterine in vertex presentation. 2: Total biophysical profile score of 8/8. Reviewed, dictated and finalized at location I. ED BOX SEWER
--- NOTE | ~2025-06-06 | US_ITS ---
EXAMINATION: US OB limited DATE: 05/09/2025 10:31 INDICATION: Assess amniotic fluid index during third trimester TECHNIQUE: Real-time ultrasound of the pelvis was performed. The interpreting radiologist was not present for the study. COMPARISON: None. FINDINGS: There is a single living fetus in vertex presentation. The placenta is posterior and not low-lying. heart rate is 132 beats per minute (bpm). The amniotic fluid index is 10.4 cm, which is normal. (5th%-95%: 7.9-24.9 cm at 35 weeks estimated gestational age). IMPRESSION: 1. Single living fetus in vertex presentation with heart rate of 132 bpm. 2. Normal amniotic fluid index of 10.4 cm. Reviewed, dictated and finalized at location A. NE EDUCATION MANAGER
--- NOTE | ~2025-06-06 | US_ITS ---
Ultrasound OB limited INDICATION: ASHLEY GDM COMPARISON: None. TECHNIQUE: Transabdominal ultrasound of the pelvis was performed. FINDINGS: Single intrauterine in vertex longitudinal lie with posterior placenta and cardiac activity of 141 bpm. ASHLEY is 8.94 cm. IMPRESSION: Single intrauterine with cardiac activity of 141 bpm. ASHLEY is 8.94 cm. Reviewed, dictated and finalized at location S. ARER
--- NOTE | ~2025-06-06 | US_ITS ---
EXAMINATION: US OB limited, 05/22/2025 10:04 WELT WHEELER HISTORY: ASHLEY Comparison: None Technique: Trivedi-scale and color Doppler images were obtained. Findings: Single live intrauterine identified in longitudinal lie and vertex presentation, heart rate 135 ASHLEY 8.7 The uterus is located fundally and appears unremarkable Cervix was not demonstrated IMPRESSION: Single live intrauterine detailed above Reviewed, dictated and finalized at location P. WHEELER
--- NOTE | ~2025-06-06 | US_ITS ---
EXAMINATION: US OB limited, 05/16/2025 17:33 NURSING DEPARTMENT CHAIRPERSON HISTORY: ASHLEY Comparison: None Technique: Trivedi-scale and color Doppler images were obtained. Findings: There is a single live intrauterine corresponding to 36 weeks and 1 day in longitudinal lie and vertex presentation, heart rate 162, ASHLEY 7.89 Placenta is located posteriorly and appears grossly unremarkable. Visualized cervix measures 4 cm IMPRESSION: Single live intrauterine detailed above Reviewed, dictated and finalized at location P. ING DEPARTMENT CHAIRPERSON
--- NOTE | ~2025-06-06 | US_ITS ---
EXAM/PROCEDURE: US OB follow up w BPP HISTORY: GDM; Add ASHLEY, weight COMPARISON: November 15, 2024 TECHNIQUE: Directed evaluation for viability and dates FINDINGS: A single viable intrauterine gestation is present with heart rate of 142 bpm Presentation: Vertex Placenta: Posterior and fundal with no gross previa or abruption. ASHLEY: 10 cm x 4 quadrant technique Biophysical profile scores 8/8. EGA by dates and ultrasound 34 weeks 3 days and 35 weeks 3 days EDC by dates and ultrasound June 12 and June 05, 2025 EFW 2682 g or 5 lbs. 15 oz. EFW percentile 75% Growth ratios are within normal limits. IMPRESSION: Directed exam demonstrating single viable intrauterine gestation with concordant dates. Biophysical profile score is 8/8. Reviewed, dictated and finalized at location A. SHARPENER IMPRESSION: Directed exam demonstrating single viable intrauterine gestation with concordan t dates. Biophysical profile score is 8/8.
--- NOTE | ~2025-06-06 | US_ITS ---
EXAMINATION: Ultrasound uterus, OB, Limited, biophysical profile: DATE: 06/06/2025 INDICATION: 39+ weeks gestational age. Gestational diabetes. Evaluate fluid volume. TECHNIQUE: Limited ultrasound aspart biophysical profile protocol including breathing, movement, tone and amniotic fluid assessment. COMPARISON: Prior exam dated 06/02/2025. FINDINGS: Single live fetus in cephalic presentation. Posterior placenta is noted. Biophysical profile score of 8/8 with 2/2 for breathing, movement, tone and amniotic fluid. Amniotic fluid index is 11.1 cm. Cervix was not evaluated. Anatomic details was not examined. The growth was not evaluated. IMPRESSION: 1. Single live fetus 39+ weeks of gestational age in cephalic presentation. 2. Biophysical profile score of 8/8. Amniotic fluid index of 11.1 cm. Reviewed, dictated and finalized at location T. CLUB WEIGHER
--- NOTE | ~2025-06-06 | US_ITS ---
EXAMINATION: US OB limited, 06/02/2025 17:09 POWER GENERATING PLANT OPERATOR HISTORY: ASHLEY Comparison: None Technique: Trivedi-scale and color Doppler images were obtained. Findings: Single live intrauterine in longitudinal lie and vertex presentation, heart rate 130 The placenta is located posteriorly with no gross retroplacental fluid collection ASHLEY 12.9 IMPRESSION: Single live intrauterine detailed above Reviewed, dictated and finalized at location P. R GENERATING PLANT OPERATOR
[2025-06-06 18:30] VITALS: BP 114/54; PULSE 68
== END 2025-06-17 11:45 | disposition other institution (70) ==
LOC: ANHOBOP 16:20
PROVIDERS: PCP Family Medicine; Visit Provider Obstetrics & Gynecology
DX: O24.419 Gestational diabetes mellitus in pregnancy, unspecified control (principal)
CPT/HCPCS: 59025; 76815; 76816; 76819

== ENCOUNTER 2025-06-08 13:53 | Outpatient (CLI) | payer OTHER, SELFPAY ==
[2025-06-08 15:15] LABS: Hematocrit 34.0 % (37.0-47.0); Hemoglobin 10.9 g/dL (12.0-15.0); Immature Granulocyte Percent A 0.8 % (0-0.5); Lymphocytes Absolute Auto 1.66 K/mm3 (0.9-3.2); Mean Corpuscular HGB Conc 32.1 g/dl (32-36); Mean Corpuscular Hemoglobin 26.5 pg (26-34); Mean Corpuscular Volume 82.5 fl (80-100); Nucleated Red Blood Cells Absolute Auto 0.000 K/mm3 (0.0-0.012); Nucleated Red Blood Cells Perc 0.0 % (0.0-0.2); Platelet Count Result 205 k/mm3 (150-375); Red Blood Count 4.12 M/mm3 (4.2-5.4); White Blood Count 9.3 K/mm3 (4.5-10.0)
[2025-06-08 16:23] LABS: Syphilis IgG/IgM Antibody Non-Reactive (Nonreactive)
== END 2025-06-08 13:54 | disposition home or self-care (01) ==
PROVIDERS: PCP Family Medicine; Visit Provider Obstetrics & Gynecology
DX: Z01.818 Encounter for other preprocedural examination (principal)
CPT/HCPCS: 36415; 85025; 86593; 86850; 86900; 86901

== ENCOUNTER 2025-06-09 05:15 | Inpatient (IN) | payer OTHER, SELFPAY ==
--- NOTE | 2025-06-08 12:49 | P.HP_ITS ---
H&P: HPI History of Present Illness Date/Time: 06/08/25 12:49 Chief Complaint: Repeat section Narrative: 29 y/o at 39 weeks admitted for planned repeat section. She also has satisfied parity and request permanent sterilization. She declines all other nonpermanent forms of contraception and declines vasectomy. PNC significant for insulin requiring diabetes. She declines trial of labor. Review of Systems Review of Systems: All systems reviewed & are unremarkable except as noted in HPI and below Constitutional: Constitutional: Reports no additional constitutional complaints and Denies headache(s) Eyes: Eyes: Denies spots in vision ENT: Reports system reviewed and no additional complaints, except as documented and Denies headache(s) Cardiovascular: Cardiovascular: Denies chest pain and Denies dyspnea Respiratory: Respiratory: Denies dyspnea Gastrointestinal: Gastrointestinal: Reports no additional gastrointestinal complaints Genitourinary: Genitourinary: Reports amenorrhea Musculoskeletal: Musculoskeletal: Reports no additional musculoskeletal complaints Integumentary/Breasts: Skin/Breast: Denies breast mass and Denies rash Neurologic: Denies headache(s) Psychiatric: Psychiatric: Reports no additional psychiatric complaints [facility] Past Medical History Medical History Goiter History of gestational diabetes PCOS (polycystic ovarian syndrome) History of pineal cyst Surgical History Surgical History History of section Delivery by section Family History Family History Father Alcoholism Depression Grandparent Diabetes mellitus Uterine cancer Hypertension Cerebrovascular accident Grandparent Cancer Social History Social History Smoking status: Never smoker Second hand tobacco smoke exposure: No Alcohol intake: current Alcohol use details: 1 glass of wine maybe once a month Substance use: never Substance use type: marijuana Lack of Transportation: No Lack of Food: Never True Current Housing: I Have Housing Concerned About Future Housing: No Difficulty Paying Gas/Electric Bills: No Difficulty Paying for Meds: No Currently Unemployed: No Education: Master's Degree or Higher Difficulty w/ Childcare or Family Care: No Living arrangements: with family Occupation/Education: occupation Gender identity (if verbalized by the patient): Female Sexual Orientation (if Verbalized by the Patient): Straight or Heterosexual Spiritual care concerns: No Meds Home Medications and Allergies Home Medications ?Medication ?Instructions ?Recorded ?Confirmed ?Type XFY-solq-PC-omega 3 fatty no.1 27 cap PO 10/14/2409/20 History mg-1 mg-300 mg capsule Dexcom G7 Sensor (blood-glucose #1 ea 04/18/25 5 Rx sensor) insulin NPH isoph U-100 human 100 14 unit (0.14 mL) sky bcut QPM #15 mL 05/04/25 06/09/25 Rx unit/mL (3 mL) subcutaneous pen (Humulin N NPH U-100 Insulin KwikPen) pen needle, diabetic 32 gauge x #100 ea 05/04/2505/31 Rx 5/32 (Tita Pen Needle) ferrous sulfate 325 mg (65 mg 325 mg PO DAILY 05/18/25 06/09/25 History iron) tablet Allergies Allergy/AdvReac Type Severity Reaction Status Date / Time No Known Allergies Allergy Verified 06/09/25 06:38 Exam Const: General: no acute distress Eyes: General: appearance normal, both eyes and all related structures Resp: Effort & Inspection: normal respiratory effort Cardio: Rate: regular rate GI: Other: Gravid no fundal tenderness no right upper quadrant pain Skin: General skin exam: no rashes or lesions noted Neuro: Cognition (Neuro): normal cognition Extrem: General: normal to inspection Psych: Mental Status: mental status grossly normal Assessment and Plan Assessment and plan (1) Delivery by section: Status: Acute Assessment and Plan: She has been counseled regarding risk benefits of repeat versus trial of labor. Questions answered. She wants to proceed with repeat section. She also requests permanent sterilization. Will proceed with bilateral salpingectomy. (2) Gestational diabetes: Code(s): O24.419 - Gestational diabetes mellitus in , unspecified control Status: Acute Assessment and Plan: Insulin controlled. (3) Encounter for female sterilization procedure: Code(s): Z30.2 - Encounter for sterilization Status: Acute
[2025-06-09] VITALS (67 sets, daily range): BP systolic 106–126; BP diastolic 53–83; PULSE 62–102; RESP 12–18; TEMP 36.4–36.9; O2SAT 96–100; BMI 39.2
--- OUTSIDE RECORDS SUMMARY | 2025-06-09 00:58 | XMS_ITS | Clinical Summary ---
Author Organization [facility] Address [address] [place] [address] Care Team Providers Care Cab Worker Name Role Phone Unavailable Primary Care Provider Unavailabl e Source Comments [facility],non-owned Affiliates and Associated Physician Practices is amultiple site organization consisting of ambulatory clinics and hospital sitesin [place], [place], [place] and [place]. This disclosure is being madepursuant to the Care Everywhere program and may not contain all information available regarding this patient. Last updated 18.[facility] [employer] Allergies No known active allergies Encounters Date Type Department Care Team Description 04/24/2025 Telephone [facility] Maternal & Care [address] [place] [id number] Leti Coates RN Appointment (Patient called to reschedule an growth ultrasound appt as she cancelled her 04/07/25 and 04/14/25 ultrasound appts due to work. ) from Last 3 Months Social History Tobacco Use Types Packs/Day Years Used Date Smoking Tobacco: Never Assessed Estimated Date of Delivery Comme nts Yes 06/13/2025 Based on Ultraso und Sex and Gender Information Value Date Recorded Sex Assigned at Not on file Legal Sex Female 3:52 PM CDT Gender Identity Not on file Sexual Orientation Not on file Plan of Treatment Health Maintenance Due Date Last Done Comments HIV SCREENING 10/21/2011 HEPATITIS C SCREENING 10/16/2014 DTAP/TDAP/TD VACCINES (1 - Tdap) 10/21/2015 HEPATITIS B VACCINE (1 of 3 - 19+ 3-dose series) 10/21/2015 PAP SMEAR 2017 HPV VACCINE (1 - 3-dose SCDM series) 10/21/2023 DEPRESSION SCREENING 06/29/2024 COVID-19 VACCINE (1 - 2024-2 6 season) 2025 INFLUENZA VACCINE (#1) 2025 04/04/2024 OB-ONE HOUR GLUCOSE 03/07/2025 OB-TDAP CURRENT 03/14/2025 OB-RHOGAM INJECTION 03/21/2025 OB-GROUP B STREP SCREEN 05/09/2025 ZOSTER VACCINE (1 of 2) 2046 HIB [...] on patient's age to complete this topic Respiratory Syncytial Virus (RSV) Vaccine Pt: or over 60 yrs (No Doses Required) Completed Insurance
[2025-06-09] MEDS: LACTATED RINGERS 1,000 ML 125 ML IV CONT (05:57)
[2025-06-09] MEDS: ACETAMINOPHEN 500 MG TABLET 1000 MG PO ×3 (06:07→19:35)
--- NOTE | 2025-06-09 06:38 | LDADM ---
This patient, James Daley, was admitted to OB/Delivery/Recovery 120 on 06/09/25 at 05:15. Plans for labor, pain management and were discussed with patient. Patient/family oriented to hospital policies and general routines including ID bracelet, bed and alarms, visiting hours, pain management, procedures, bathroom and other care routines, personal items, smoking policy, room service/diet and guest tray routines, infant security routines, and visiting hours. Patient/Family are encouraged to report perceived risks to care and to ask questions if they do not understand what they are told or what they should do. See OBIX for further documentation.
--- NOTE | 2025-06-09 07:01 | WPDANESEPPF ---
Anes - Initial Pre Proc Eval Procedure: Operation Date: 06/09/25 07:30 Proposed Procedures p Repeat Section - Oc Sanchez MD Date/Time: 06/09/25 07:01 Surgeon: Oc Sanchez MD Pre Op Diagnosis: C/S Patient Data Age: 29 Gender: F Height: 1.65 m Weight: 107 kg Last Vital Signs Pulse 85 06/09/25 07:00 BP 118/60 06/09/25 07:00 Pulse Ox 100 06/09/25 06:56 O2 Del Method Room Air 06/09/25 06:37 Allergies Allergy/AdvReac Type Severity Reaction Status Date / Time No Known Allergies Allergy Verified 06/09/25 06:38 Home Medications ?Medication ?Instructions ?Recorded ?Confirmed ?Type QCO-ookd-AT-omega 3 fatty no.1 27 cap PO 10/14/24 05/31/25 History mg-1 mg-300 mg capsule Dexcom G7 Sensor (blood-glucose #1 ea 04/18/25 05/31/25 Rx sensor) insulin NPH isoph U-100 human 100 14 unit (0.14 mL) subcut QPM #15 mL 05/04/25 06/09/25 Rx unit/mL (3 mL) subcutaneous pen (Humulin N NPH U-100 Insulin KwikPen) pen needle, diabetic 32 gauge x #100 ea 05/04/25 05/31/25 Rx 5/32 (Tita Pen Needle) ferrous sulfate 325 mg (65 mg 325 mg PO DAILY 05/18/25 06/09/25 History iron) tablet Results Review: All pre-operative results and documents have been reviewed as part of the pre-operative evaluation. [facility] Past Medical History Medical History Goiter History of gestational diabetes PCOS (polycystic ovarian syndrome) History of pineal cyst Surgical History Surgical History History of section Delivery by section Family History Family History Father Alcoholism Depression Grandparent Diabetes mellitus Uterine cancer Hypertension Cerebrovascular accident Grandparent Cancer Social History Social History Smoking status: Never smoker Second hand tobacco smoke exposure: No Alcohol intake: current Alcohol use details: 1 glass of wine maybe once a month Substance use: never Substance use type: marijuana Lack of Transportation: No Lack of Food: Never True Current Housing: I Have Housing Concerned About Future Housing: No Difficulty Paying Gas/Electric Bills: No Difficulty Paying for Meds: No Currently Unemployed: No Education: Master's Degree or Higher Difficulty w/ Childcare or Family Care: No Living arrangements: with family Occupation/Education: occupation Gender identity (if verbalized by the patient): Female Sexual Orientation (if Verbalized by the Patient): Straight or Heterosexual Spiritual care concerns: No Anes - Eval Final PreProcedure Day of Procedure 06/09/25 07:01 Patient weight: obese Heart: regular rate and rhythm Lungs: clear to auscultation and normal air movement Airway: Mallampati scale class II Neurological: alert and oriented Last oral intake: >/= 8 hours ASA classification: III Emergent: no Anesthetic plan: proceed Anesthesia type and monitoring: regional spinal and standard monitoring Results Review: All pre-operative results and documents have been reviewed as part of the pre-operative evaluation. Informed Consent: The patient's anesthetic plan and its attendant risks and benefits were discussed with the patient/family/POA. Questions were solicited and answers provided to the satisfaction of the patient/family/POA.
[2025-06-09] MEDS: FAMOTIDINE 20 MG/2 ML VIAL IV PUSH (07:12)
[2025-06-09] MEDS: ONDANSETRON INJ 4 MG/2 ML VIAL IV PUSH (07:12)
--- NOTE | 2025-06-09 07:27 | WPDHPUPDATE1 ---
History and Physical Update Update Date/Time: 06/09/25 07:27 History and Physical has been reviewed, including an updated exam of the patient. There are NO changes in the patient's condition. Risks, benefits, and alternatives have been discussed and questions answered. Patient agrees to proceed with procedure.
[2025-06-09] MEDS: ceFAZolin 2 GM in SODIUM CHLORIDE 0.9% IV 50 ML 100 ML IVPB (07:35)
--- NOTE | 2025-06-09 08:20 | S_PTH ---
PATIENT: James Daley LOC: [facility]2 U#:[id number] AGE/SX: 29/F ROOM: 291 RE06/09/[address]: Oc Sanchez MD : 1995 BED: 00 DIS: 06/11/2025 SPEC #: [id number] RECD: 06/09/25 09:52 STATUS: YOMI REQ #: [id number] LOUISE: 06/09/25 08:[address]: Oc Sanchez DEPT: [facility] Surgical RECD BY: Kinga Odom ENTERED: 06/09/25 09:52 SP TYPE: Surgical OTHR DR: Salty Leiva MD Tissues: A - Placenta B - Fallopian Tube Bilateral Procedures: Gross and Microscopic Level 2 Hematoxylin and Eosin Stain Gross and Microscopic Level 5
--- NOTE | 2025-06-09 09:40 | P.PCNOB_ITS ---
OB - Delivery Note Procedure Delivery date: 06/09/25 Pre-op diagnosis: Gestational Diabetes and Previous Delivery Post-op Diagnosis: Other (3. Undesired fertility request sterilization) Induction method: None Prior to decision for section, ACOG/SMFM labor guidelines were considered and discussed with the patient and staff. Decision made to proceed with the section.: Yes Procedure Performed: Repeat and Tubal Ligation Surgeon: Oc Sanchez MD Anesthesia type: Spinal Description of Procedure/Findings: Female , 1rn75ks, apgars 8,9, loose nuchal cord and cord around right arm loose manually reduced Normal fallopian tubes bilaterally, normal ovaries bilaterally. After informed consent, risks and benefits of the procedure was discussed with the patient. The patient was taken to the operating room where she was placed in the dorsal lithotomy position with leftward tilt. After the spinal anesthesia was found to be adequate, she was then prepped and draped in the usual sterile fashion. A Pfannenstiel skin incision was made with a scalpel and carried through to the underlying layer of fascia. The fascia was then nicked in the midline, extending bilaterally. The scarred fascia was dissected off the rectus muscles bluntly and sharply, superiorly and inferiorly. The rectus muscles were in the midline, and peritoneum was identified and entered bluntly. The pelvic organs were visualized. The bladder blade was then inserted. The vesicouterine peritoneum was identified and entered sharply with Metzenbaum scissors and extended bilaterally and then the bladder flap was created digitally. The low transverse uterine incision was then made with the scalpel and extended with bilateral index fingers in a crescent-shaped fashion. The head was delivered, loose nuchal cord manually reduced and the rest of the was delivered. The cord was around right arm and manually reduced. The cord was clamped twice and cut. The infant was then handed off to the awaiting pediatric staff. The placenta was then del ivered manually. The uterine cavity was sponge curetted. The uterus was then exteriorized. The uterine incision was then closed with 0 vicryl in a running locked fashion. A second layer of interrupted figure of eight 0 vicryl was used. Uterine incision was hemostatic. The right and left fallopian tubes were excised with ligasure. Hemostasis noted. The posterior cul de sac irrigated. The uterus was then returned to the abdomen. Bilateral gutters was irrigated and cleared of all clots and debris. The uterine incision was noted to be hemostatic. The muscle bellies were inspected and noted to be hemostatic. The subfascial layer was noted to be hemostatic, and the fascia was approximated with 0 Vicryl in a running fashion x 2. The subcutaneous layer was then irrigated and approximated with 3-0 Vicryl. The skin was closed with Ensorb adelso. Dermabond applied at incision. All instruments, needle, and lap counts were correct x3. The patient was taken to the recovery room in stable condition. Specimen: Yes (placenta and cord and right and left fallopian tubes) Estimated Blood Loss: 615 Drains: No Packing: No Pathology: Yes (placenta and cord and right and left fallopian tubes) Complications: No immediate complications Condition: Stable Disposition: Floor Baby Date of : 06/09/25 Time of : 08:09 Gestational Age by Date: 39 Infant gender: Female Weight (pounds): 8 Weight (ounces): 13 presentation: vertex Placenta delivery description: Manual Removal Cord Vessel Description: 3 Vessels, Nuchal Cord, Loose and Around Extremity (right arm loose) score one minute: 8 score five minutes: 9
[2025-06-09] MEDS: OXYTOCIN 30 UNITS/NS 500 ML 30 UNITS/500 ML BAG 125 UNITS IV CONT (10:15)
--- NOTE | 2025-06-09 11:56 | OBPPTRN ---
1135-Patient transferred to post room #291 via stretcher.. Support person present. Oriented to unit, room, information board, rooming in, admission packet and security measures. Patient verbalizes understanding.
[2025-06-09] MEDS: KETOROLAC 15 MG/ML VIAL (*BKC) IV PUSH ×2 (13:10→19:35)
[2025-06-09] MEDS: SIMETHICONE 80 MG TAB.CHEW PO ×2 (13:10→17:31)
[2025-06-09] MEDS: DEXTROSE 5%/0.45% SOD CHL 1,000 ML 125 ML IV CONT (14:07)
--- NOTE | 2025-06-09 16:34 | PM.OBDSVD ---
DS: Admitting Diagnosis Admitting Diagnosis Elective repeat section Request for sterilization DS: Discharge Diagnosis Discharge Diagnosis (1) Delivery by section: Status: Acute OB - DS: Summary Peripartum Data Procedures: Procedures Operation Date: 06/09/25 07:30 Actual Procedure Side Surgeon p Section Not Applicable Oc Sanchez MD s Post- Tubal Ligation Bilateral Oc Sanchez MD Time Spent with Patient Time attestation: Total time spent providing and/or coordinating discharge services: DS: Data Data Completed and Pending Pending studies at discharge: Pending at discharge 06/09/25 08:20 Surgical [PTH] Routine Surgical [PTH] Routine Labs on day of discharge: Labs from last 24 hours 06/09/25 07:06 POC Capillary Glucose 100 Discharge Plan Discharge Patient Language: Malaysian Discharge Medications: No Action OIN-wpob-GP-omega 3 fatty no.1 27-1-300 mg capsule PO Humulin N NPH Insulin KwikPen 100 unit/mL (3 mL) insulin pen 14 unit subcut QPM Qty: 15 0RF (DME) pen needle, diabetic [Tita Pen Needle] 32 gauge x 5/32 needle See Rx Instructions .MEDSUPPLY Qty: 100 0RF Rx Instructions: As directed ferrous sulfate 325 mg (65 mg iron) tablet 325 mg PO DAILY (DME) Dexcom G7 Sensor Device See Rx Instructions .MEDSUPPLY Qty: 1 4RF Rx Instructions: Apply sensor for 10 days Date of admission: 06/09/25 05:15 Primary Care Provider: Salty Leiva Admitting Provider: Oc Sanchez Attending physician on admission: Oc Sanchez
--- NOTE | 2025-06-09 16:35 | PM.OBPNVD ---
OB - PN: Subj Subjective Date/time seen: 06/10/25 1000 Interval history: She states pain controlled, tolerating regular diet, no flatus. Denies leg pain. Denies lightheadedness or dizziness. [place] baby status: doing well OB - PN: Obj Data Labs 06/10/25 05:06 Labs: Laboratory Results - last 24 hr 06/09/25 07:06 POC Capillary Glucose 100 OB - PN A/P Assessment and Plan (1) Delivery by section: Status: Acute Assessment and Plan: Doing well. Routine post care. Pre op anemia. No hypovolemic symptoms. Continue oral iron therapy. Time Spent With Patient Time: Total time spent is greater than 50% in coordination of care (as documented) at patient's floor/unit and/or counseling patient: Exam Const: General: comfortable and no acute distress Resp: Effort & Inspection: normal respiratory effort Auscultation: clear to auscultation bilaterally Cardio: Rate: regular rate GI: Other: decreased bowel sounds, mildly distended, incision no drainage or erythema, intact Psych: Mental Status: mental status grossly normal Affect: normal affect
[2025-06-09] MEDS: DOCUSATE SODIUM 100 MG CAPSULE PO (17:31)
[2025-06-09] MEDS: LIDOCAINE 5% PATCH 1 PATCH TRANSDERM (19:45)
[2025-06-10] MEDS: ONDANSETRON INJ 4 MG/2 ML VIAL IV PUSH (00:49)
[2025-06-10] MEDS: ACETAMINOPHEN 500 MG TABLET 1000 MG PO ×4 (01:45→19:45)
[2025-06-10] MEDS: KETOROLAC 15 MG/ML VIAL (*BKC) IV PUSH (01:45)
[2025-06-10 05:00] VITALS: BP 102/67; PULSE 89; RESP 18; TEMP 36.4; O2SAT 98
[2025-06-10 05:15] LABS: Hematocrit 26.6 % (37.0-47.0); Hemoglobin 8.3 g/dL (12.0-15.0); Immature Granulocyte Percent A 0.5 % (0-0.5); Lymphocytes Absolute Auto 1.43 K/mm3 (0.9-3.2); Mean Corpuscular HGB Conc 31.2 g/dl (32-36); Mean Corpuscular Hemoglobin 26.4 pg (26-34); Mean Corpuscular Volume 84.7 fl (80-100); Nucleated Red Blood Cells Absolute Auto 0.000 K/mm3 (0.0-0.012); Nucleated Red Blood Cells Perc 0.0 % (0.0-0.2); Platelet Count Result 134 k/mm3 (150-375); Red Blood Count 3.14 M/mm3 (4.2-5.4); White Blood Count 9.6 K/mm3 (4.5-10.0)
[2025-06-10 05:53] LABS: Syphilis IgG/IgM Antibody Non-Reactive (Nonreactive)
[2025-06-10] MEDS: DOCUSATE SODIUM 100 MG CAPSULE PO ×2 (07:52→17:11)
[2025-06-10] MEDS: SIMETHICONE 80 MG TAB.CHEW PO ×3 (07:52→17:11)
[2025-06-10] MEDS: IBUPROFEN 600 MG TABLET PO ×3 (07:52→19:45)
[2025-06-10 08:00] VITALS: BP 129/77; PULSE 81; RESP 18; TEMP 36.9; O2SAT 100
[2025-06-10] MEDS: oxyCODONE HCL (*CRX) 5 MG TAB IR PO ×2 (09:19→18:16)
--- NOTE | 2025-06-10 16:19 | WPDANLDPN2 ---
Anes-Prog Note L&D Date/Time: 06/10/25 16:19 Comfortable throughout: section Neuraxial method: spinal Epidural/Spinal procedure site: clean & non-tender Neuro status: Neuro function grossly intact. Cardiovascular status: normal Respiratory status: normal Airway patency: baseline Mental status: baseline Post-Op hydration status: normal Vital Signs: Last Vital Signs Temp 98.5 F 06/10/25 08:00 Pulse 81 06/10/25 08:00 Resp 18 06/10/25 08:00 BP 129/77 06/10/25 08:00 Pulse Ox 100 06/10/25 08:00 O2 Del Method Room Air 06/10/25 08:00 Pain score (VAS): 0 I/O: Intake & Output 06/10/25 06/10/25 06/10/25 07:59 15:59 23:59 Intake Total 440 Output Total 700 800 Balance -700 -360 Post-procedural complaints: pruritis mild, no treatment Patient feedback: Patient satisfied with anesthetic care.
--- NOTE | 2025-06-10 16:20 | WPDANLDNPN2 ---
Anes-Prog Note L&D-Neuraxial Date/Time: 06/10/25 16:20 Neuraxial medications: intrathecal PF morphine Opiod-related complaints: pruritis Patient feedback: Patient satisfied with post-operative pain management.
[2025-06-10 19:35] VITALS: BP 131/84; PULSE 95; RESP 18; TEMP 36.6; O2SAT 98
[2025-06-10] MEDS: LIDOCAINE 5% PATCH 1 PATCH TRANSDERM (19:45)
[2025-06-11] MEDS: ACETAMINOPHEN 500 MG TABLET 1000 MG PO ×2 (01:30→07:40)
[2025-06-11] MEDS: IBUPROFEN 600 MG TABLET PO ×2 (01:30→07:41)
[2025-06-11] MEDS: oxyCODONE HCL (*CRX) 5 MG TAB IR PO (04:38)
[2025-06-11] MEDS: DOCUSATE SODIUM 100 MG CAPSULE PO (07:41)
[2025-06-11] MEDS: SIMETHICONE 80 MG TAB.CHEW PO (07:41)
[2025-06-11 09:45] VITALS: BP 124/77; PULSE 80; RESP 16; TEMP 36.8; O2SAT 100
--- NOTE | 2025-06-11 09:59 | P.PNOB_ITS ---
OB - PN: Subj Subjective Date/time seen: 06/11/25 09:59 Interval history: She states pain controlled, tolerating regular diet, no flatus. Denies leg pain. Denies lightheadedness or dizziness. L OB - PN: Obj Data Labs 06/10/25 05:06 OB - PN A/P Time Spent With Patient Time: Total time spent is greater than 50% in coordination of care (as documented) at patient's floor/unit and/or counseling patient:
[2025-06-12 08:17] VITALS: BP 122/85; PULSE 85; RESP 18; TEMP 36.9; O2SAT 100
== END 2025-06-11 11:33 | disposition home or self-care (01) | DRG 784 ==
LOC: ANHLDR 05:29 → ANHOB2 11:50
PROVIDERS: Admitting Provider Obstetrics & Gynecology; PCP Family Medicine; Visit Provider Obstetrics & Gynecology
PROC: 0UB70ZZ Excision of Bilateral Fallopian Tubes, Open Approach (ICD-10-PCS; CPT 59514; principal; 2025-06-09 07:30)
PROC: 0UB70ZZ Excision of Bilateral Fallopian Tubes, Open Approach (ICD-10-PCS; CPT 58605; 2025-06-09 07:30)
DX: O24.429 Gestational diabetes mellitus in childbirth, unspecified control (principal); D62 Acute posthemorrhagic anemia; Z3A.39 39 weeks gestation of pregnancy; Z37.0 Single live birth; O90.81 Anemia of the puerperium; O34.211 Maternal care for low transverse scar from previous cesarean delivery; O69.81X0 Labor and delivery complicated by cord around neck, without compression, not applicable or unspecified; O69.82X0 Labor and delivery complicated by other cord entanglement, without compression, not applicable or unspecified; Z30.2 Encounter for sterilization
CPT/HCPCS: 36415; 82948; 85025; 86593; 88302; 88307; J0690; A9270; J1885; J2274; J2371; J2405; J2590; J7120